=== PATIENT | female | born 1950 | race Caucasian/White ===

== ENCOUNTER → 2018-06-24 | Outpatient (CLI) | payer MEDICARE, OTHER, SELFPAY ==
--- NOTE | 2018-06-24 15:22 | RAD_ITS ---
STUDY: X-RAY CHEST REASON FOR EXAM: Female, 67 years old. Preop knee arthroplasty. TECHNIQUE: Frontal and lateral views of the chest. COMPARISON: None. FINDINGS: There is hyperinflation of the lungs consistent with chronic obstructive lung disease (COPD). No infiltrates. No effusions. There is no demonstrated pleural abnormality. Normal size heart. Normal mediastinum and gaurang. Normal visualized pulmonary arteries. Normal visualized aortic arch and descending thoracic aorta. There are diffuse degenerative changes of the visualized thoracic spine. Normal visualized ribs, clavicles, and shoulders. There is no demonstrated abnormality of the visualized soft tissue structures of the upper abdomen. RAD/Chest PA and Lateral IMPRESSION: There are findings consistent with COPD. There is no evidence of acute chest disease. Electronically Signed: Arthur Cottrell MD at 21:29 EDT , Service support ,
--- NOTE | 2018-06-24 15:26 | EKG12_ITS ---
Test Reason : PRE OP Blood Pressure : / mmHG Vent. Rate : 073 BPM Atrial Rate : 073 BPM P-R Int : 130 ms QRS Dur : 084 ms QT Int : 392 ms P-R-T Axes : 061 -51 041 degrees QTc Int : 431 ms Normal sinus rhythm Left axis deviation Abnormal ECG Confirmed by AMADEO FONTANEZ, TOM ([id number]), editorial manager SALLY CRUZ ([id number] on 06/25/2018 7:04:49 AM Referred By: Star Cruz Confirmed By:TOM CHILDS MD
== END | disposition home or self-care (01) ==
LOC: RAD 15:20
PROVIDERS: Referring Provider Orthopaedic Surgery; Visit Provider Orthopaedic Surgery
DX: F17.200 Nicotine dependence, unspecified, uncomplicated (principal); Z79.899 Other long term (current) drug therapy
CPT/HCPCS: 71046; 93005

== ENCOUNTER 2022-02-20 11:44 | Emergency (ER) | payer MEDICARE, OTHER, SELFPAY ==
[2022-02-20 11:45] VITALS: BP 109/93; PULSE 47; RESP 18; TEMP 36.3; O2SAT 95; BMI 25.0
[2022-02-20 11:47] VITALS: BP 155/76; PULSE 98; RESP 18; TEMP 36.8; O2SAT 98
[2022-02-20 12:47] VITALS: BP 137/80; PULSE 96; RESP 16; TEMP 37; O2SAT 99
[2022-02-20 13:00] VITALS: BP 132/74; PULSE 94; RESP 18; TEMP 36.9; O2SAT 98
[2022-02-20 13:44] VITALS: BP 115/72; PULSE 82; RESP 18; O2SAT 97
--- NOTE | 2022-02-20 13:44 | EX.ED.VIS.UR ---
HPI HPI - URI History of Present Illness Chief Complaint: Edema Informant: patient Onset/Context/Timing Onset: Weeks (2-3) Context: Gradual Onset Timing: Continuous Quality: Sinus pressure/pain along with some headaches off and on Location: Face Current Severity: Mild Maximum Severity: Moderate Worsened by: - (Nothing in particular) Relieved by: - (Nothing despite taking a second course of antibiotics) Narrative Narrative: Was seen in the office when she started having cough some mild shortness of breath with exertion, sinus pain, pressure, congestion about 3 weeks ago. She was placed on Augmentin after being diagnosed clinically with some pneumonia in the office according to the patient. This took care of her mild dyspnea and cough, and that has not recurred. She still has the sinus pressure and congestion. Her doctor put her on Levaquin 500 mg for 10 days, she has had 2 doses of that without any changes and she presents because her eyelids have been swollen since before starting the antibiotic, it is still like that, and she is still having a sinus discomfort in addition to popping in her ears when she holds her nose gently and blows. She denies any earache. No fevers or chills. No purulent nasal discharge. ROS ROS ED Constitutional Constitutional ED: Denies chills or fever(s) Eyes Eyes: Denies blurry vision, change in vision or diplopia ENT ENT ED: Reports as per HPI, headache(s), nasal congestion, rhinorrhea, sinus pain, sinus pressure and other Details: Ear popping bilaterally without pain or discharge. Bilateral lower eyelid and upper eyelid swelling without pain or changes in vision. ; Denies disequillibrium, dizziness, loss taste/smell, sore throat, throat swelling or tongue swelling Cardiovascular Cardiovascular: Denies chest pain or palpitations Respiratory/Chest Respiratory/Chest: Denies cough or dyspnea Gastrointestinal Gastrointestinal: Denies abdominal pain, diarrhea, nausea or vomiting Genitourinary Genitourinary ED: Denies dysuria or hematuria Musculoskeletal Musculoskeletal: Denies myalgias or neck pain Integumentary Denies abscess or rash Neurologic Neurologic: Reports headache(s); Denies paresthesias or weakness Psychiatric Psychiatric: Denies depression or suicidal thoughts Endocrine Endocrinology: Denies polydipsia or polyuria PFSH PFSH Medical History Smoker Allergy/AdvReac Type Severity Reaction Status Date / Time bee venom protein (honey bee) Allergy Anaphylaxis Verified 02/20/22 11:47 [bees] povidone-iodine Allergy Rash Verified 02/20/22 11:47 [From Betadine] Surgical History (Updated 02/20/22 @ 12:21 by Chani Hopper) Hx of tonsillectomy Social History Smoking Status: Current every day smoker tobacco type: cigarettes EXAM Physical Exam Const Vital Signs: 02/20/22 11:45 02/20/22 11:47 02/20/22 12:23 Temperature 97.3 F L 98.2 F Temperature Source Temporal Temporal Pulse Rate 47 L 98 Respiratory Rate 18 18 Respiratory Effort Short of Breath Respiratory Pattern Normal Blood Pressure 109/93 H 155/76 H Blood Pressure Mean 98 102 Pulse Ox 95 98 Oxygen Delivery Method Room Air Room Air 02/20/22 12:47 02/20/22 13:00 02/20/22 13:44 Temperature 98.6 F 98.4 F Temperature Source Temporal Temporal Pulse Rate 96 94 82 Respiratory Rate 16 18 18 Respiratory Effort Respiratory Pattern Blood Pressure 137/80 H 132/74 H 115/72 Blood Pressure Mean 99 93 86 Pulse Ox 99 98 97 Oxygen Delivery Method Room Air Room Air Room Air Positive well nourished and well developed General Appearance ED: well developed and NAD HEENT Reports moist mucous membranes HEENT Narrative: Nontender edematous bilateral infraorbital soft tissue without eyelid proper involvement. Normal conjunctivae. No ptosis. No signs of periorbital cellulitis. Mild ethmoid sinus tenderness. No maxillary sinus tenderness. No nasal purulent discharge, mild turbinate edema bilaterally, airways patent. No frontal tenderness. normocephalic and atraumatic Throat: Negative for posterior oropharynx abnormal Eyes PERRL and EOMs intact bilaterally Neck no lymphadenopathy, supple and no meningeal signs Resp normal respiratory effort and clear to auscultation bilaterally Cardio no murmurs Rate: regular rate Rhythm: regular rhythm Neuro oriented x3, CN's II-XII intact bilaterally and no sensory deficits noted Sensorium / Orientation: alert Motor Exam: strength 5/5 throughout Skin Lesions: no lesions Rashes: no rashes MDM MDM MDM Narrative Medical decision making narrative: Reassured this patient her exam is very benign. She has mild sinus tenderness. There is no evidence of a bacterial infection here. I do not think she is failing antibiotics. I would suggest she probably has a viral etiology of her sinus disease, or it could also be allergic although it is less likely due to the season being winter, but she does have significant seasonal allergies and other seasons. Since she has swelling below her eyes, I do not think putting her on prednisone will necessarily be helpful right now it could make fluid retention be worse, she is not retaining fluid in her extremities at all, and I am not sure the etiology of the facial edema but I do not think it is dangerous or indicative of preseptal cellulitis or other orbital phenomena. I think it would be reasonable to treat her with a decongestant which she has not tried at all. I would recommend oxymetazoline we discussed tachyphylaxis and how to avoid that, and she asked if she could stop the antibiotic which she wants to do, which I think would be reasonable. Follow-up advised. Discharge Plan Triage Chief Complaint: Edema ED Provider: Maxwell Loera Dx/Rx/DC Orders Clinical Impression: Sinus congestion, Sinus headache, Eustachian tube dysfunction, Swelling of eyelid Instructions: Understanding Sinus Problems Primary Care Provider: Arash Lisa Referrals: Arash Lisa MD [Primary Care Provider] - 3-5 Days if not improving Activity Restrictions/Additional Instructions: Use oxymetazoline or phenylephrine containing nasal sprays, 2 sprays each nostril every 12 hours as needed no more than 3 days at a time for congestion. After 15 or 20 minutes of doing this, applying a small amount of pressure by holding her nose and blowing can sometimes also help to stent open your sinuses, try to hold that pressure gently for an entire breath. Disposition Disposition: Home, Self Care
== END 2022-02-20 14:17 | disposition home or self-care (01) ==
PROVIDERS: Emergency Provider Emergency Medicine; PCP Family Medicine; Visit Provider Emergency Medicine
DX: R09.81 Nasal congestion (principal); R51.9 Headache, unspecified; F17.210 Nicotine dependence, cigarettes, uncomplicated; R60.9 Edema, unspecified
CPT/HCPCS: 99282

== ENCOUNTER 2022-03-31 19:53 | Emergency (ER) | payer MEDICARE, SELFPAY ==
[2022-03-31 19:54] VITALS: BP 132/76; PULSE 101; RESP 20; TEMP 36.6; O2SAT 97; BMI 25.1
--- NOTE | 2022-03-31 20:20 | EKG12_ITS ---
Test Reason : CP Blood Pressure : / mmHG Vent. Rate : 096 BPM Atrial Rate : 096 BPM P-R Int : 138 ms QRS Dur : 076 ms QT Int : 324 ms P-R-T Axes : 054 -23 053 degrees QTc Int : 409 ms Sinus rhythm with Premature supraventricular complexes Otherwise normal ECG Confirmed by PASHA FONTANEZ, CH[place] ([id number]), script editor LALO POLO ([id number]) on 04/03/2022 10:09:54 AM Referred By: BB Confirmed By:CHINA PAK MD
--- NOTE | 2022-03-31 20:37 | RAD_ITS ---
INDICATION: chest pain. Additional history: Pt experiencing intermittent CP with frequent nosebleeds. Has tumor around the heart, had recent stents placed for SCV. Denies CP at this time, states she has anxiety EXAMINATION/TECHNIQUE: X-RAY - XR Chest 2 Views COMPARISON: 06/24/2018 FINDINGS: LIFE-SUPPORT AND LINES: 1. Endovascular stent noted projecting along the course of the SVC. 2. No pneumothorax. HEART AND VESSELS: The cardiac silhouette, pulmonary vasculature have normal appearance. No evidence of congestive failure. LUNGS AND PLEURAL SPACES: Prominence of the RIGHT hilum is noted, with thickening of the RIGHT paratracheal soft tissue planes. Sequelae of mediastinal adenopathy and soft tissue thickening. No reed pulmonary infiltrate or consolidation MEDIASTINUM AND HILAR REGIONS: No masses adenopathy noted. No areas of calcification. Visualized upper airway is normal in position. BONY ELEMENTS: No acute bony changes noted. RAD/Chest PA and Lateral IMPRESSION: 1. Endovascular stent projecting along the course of the SVC. No pneumothorax. 2. Soft tissue thickening in the RIGHT paratracheal region extending into the RIGHT hilum, associated adenopathy and chronic soft tissue thickening is suspected. Associated mass and adenopathy are considerations. 3. No pulmonary infiltrate noted. 4. No congestive failure. Electronically Signed: Chase Newton MD at 20:49 EST ,
[2022-03-31 20:46] LABS: Absolute Lymphocyte Count 0.92 X10^3/uL (0.83-4.51); Absolute Neutrophil Count 3.8 X10^3/uL (2.0-7.7); Basophil# 0.02 X10^3/uL; Basophil% 0.4 % (0-1); Eosinophil# 0.03 X10^3/uL; Eosinophils% 0.6 % (0-5); Hematocrit 37.7 % (37-47); Hemoglobin 12.3 g/dL (12.0-15.0); Lymphocyte # 0.92 X10^3/ul (0.83-4.51); Lymphocyte % 18.9 % (19-41); Mean Corp Hgb Conc 32.6 g/dL (32-36); Mean Corpuscular Hgb 30.2 pg (27.0-32.0); Mean Corpuscular Volume 92.6 fL (81-99); Mean Platelet Vol. 10.7 fl (6.2-12.0); Monocyte# 0.03 X10^3/uL; Monocyte% 0.6 % (0-10); NRBC Flagged by Analyzer 0 % (0-5); Neutrophil # 3.81 X10^3/uL (2.7-7.7); Neutrophil % 78.1 % (47-70); POSITIVE MORPHOLOGY YES; Platelet Count 258 K/mm3 (150-450); RBC Distribution Width CV 13.2 % (11.6-14.6); RBC Distribution Width SD 44.4 fl (35.1-43.9); Red Blood Count 4.07 M/mm3 (4.2-5.4); White Blood Count 4.9 K/mm3 (4.4-11.0)
[2022-03-31 20:47] LABS: Differential Indicated SCAN CRITERIA MET
--- NOTE | 2022-03-31 20:47 | ED.VIS.CHEST ---
HPI <MORENA Jackson - Last Filed: 03/31/22 23:01> History of Present Illness Chief Complaint: Chest Pain Narrative Narrative: Patient presents with sharp and intermittent midsternal chest pain that radiates to her back and to the left side of her chest that she has had since last night. She states the pain was so bad last night that she began to cry. Patient states that she does have acid reflux and is not sure if that is what is causing her chest pain but she also has anxiety and thinks she might be having panic attacks. She states she has tried taking Gas-X and [place] without relief of her symptoms. Patient was recently diagnosed with lung cancer and had 2 stents placed for SVC syndrome on Thursday as well as a bronchoscopy. Patient denies history of cardiac conditions, blood clots, shortness of breath, nausea, abdominal pain PFSH <MORENA Jackson - Last Filed: 03/31/22 23:01> PFSH Medical History Smoker Home Medications lorazepam 0.5 mg tablet (Ativan) 0.5 mg PO DAILY PRN anxiety #14 tabs 03/31/22 [Rx Last Taken Unknown] oxycodone-acetaminophen 5 mg-325 mg tablet (Percocet) 1 tab PO Q8H PRN pain 5 days #10 tabs 03/31/22 [Rx Last Taken Unknown] pantoprazole 20 mg tablet,delayed release (Protonix) 20 mg PO DAILY #30 tabs 03/31/22 [Rx Last Taken Unknown] Allergy/AdvReac Type Severity Reaction Status Date / Time bee venom protein (honey bee) Allergy Anaphylaxis Verified 02/20/22 11:47 [bees] povidone-iodine Allergy Rash Verified 02/20/22 11:47 [From Betadine] Surgical History Hx of tonsillectomy Social History Smoking Status: Former smoker ROS <MORENA Jackson - Last Filed: 03/31/22 23:01> ROS ED Constitutional Constitutional ED: Denies chills, fever(s) or sweats Eyes Eyes: Denies blurry vision or diplopia Cardiovascular Cardiovascular: Reports chest pain; Denies palpitations Respiratory/Chest Respiratory/Chest: Denies cough, dyspnea, tachypnea or wheezing Gastrointestinal Gastrointestinal: Denies abdominal pain, constipation, diarrhea, nausea or vomiting Genitourinary Genitourinary ED: Denies dysuria, hematuria or urinary urgency Musculoskeletal Musculoskeletal: Denies arthralgias, back pain, myalgias or neck pain Integumentary Denies abscess, Abrasions or rash Neurologic Neurologic: Denies confusion, dizziness or paresthesias Psychiatric Psychiatric: Reports anxiety; Denies depression, suicidal ideation or suicidal thoughts Allergic/Immunologic Allergic/Immunologic ED: Denies lip swelling, mouth swelling or urticaria EXAM <MORENA Jackson - Last Filed: 03/31/22 23:01> Physical Exam Const Vital Signs: 03/31/22 19:54 03/31/22 19:58 03/31/22 22:09 Temperature 97.9 F Temperature Source Temporal Pulse Rate 101 H 95 Respiratory Rate 20 H 15 Respiratory Effort Normal Blood Pressure 132/76 H 112/67 Blood Pressure Mean 94 82 Pulse Ox 97 95 Oxygen Delivery Method Room Air Room Air Positive well nourished, well developed and no apparent distress General Appearance ED: well developed HEENT Reports normocephalic and head/scalp atraumatic Mouth ED: Yes moist mucous membranes normal Eyes PERRL and EOMs intact bilaterally Neck full ROM and supple Chest Wall inspection of chest normal Resp normal respiratory effort and clear to auscultation bilaterally Cardio regular rate and regular rhythm GI soft to palpation, non-tender, non-distended and no masses Back/Spine normal ROM and normal to inspection Extremity normal to inspection and full ROM Neuro oriented x3, CN's II-XII intact bilaterally, moves all extremities, no focal motor deficits and no sensory deficits noted Sensorium / Orientation: awake and alert Psych mental status grossly normal and thought process normal Skin no rashes or lesions noted and no wounds <Dr. Maxwell Loera MD - Last Filed: 03/31/22 23:04> Physical Exam Const Vital Signs: 03/31/22 19:54 03/31/22 19:58 03/31/22 22:09 Temperature 97.9 F Temperature Source Temporal Pulse Rate 101 H 95 Respiratory Rate 20 H 15 Respiratory Effort Normal Blood Pressure 132/76 H 112/67 Blood Pressure Mean 94 82 Pulse Ox 97 95 Oxygen Delivery Method Room Air Room Air <MORENA Jackson - Last Filed: 03/31/22 23:01> Heart Score Score: 3 <Dr. Maxwell Loera MD - Last Filed: 03/31/22 23:04> Heart Score History: Slightly/Non-Suspicious ECG: Normal Age: >/= 65 years Risk Factors: 1 or 2 Risk Factors Troponin: </= Normal Limit Score: 3 MDM <MORENA Jackson - Last Filed: 03/31/22 23:01> MDM Lab Data Labs: Laboratory Results - last 24 hr 03/31/22 03/31/22 20:32 20:32 WBC 4.9 RBC 4.07 L Hgb 12.3 Hct 37.7 MCV 92.6 MCH 30.2 MCHC 32.6 RDW Std Deviation 44.4 H RDW Coeff of Chanda 13.2 Plt Count 258 MPV 10.7 Immature Gran % (Auto) 1.400 H Neut % (Auto) 78.1 H Lymph % (Auto) 18.9 L [place] % (Auto) 0.6 Eos % (Auto) 0.6 Baso % (Auto) 0.4 Absolute Neuts (auto) 3.8 Absolute Lymphs (auto) 0.92 Nucleated RBC % 0 Differential Comment SCANNED Sodium 135 L Potassium 4.3 Chloride 99 Carbon Dioxide 28.0 Anion Gap 8 BUN 31 H Creatinine 0.66 Estim Creat Clear Calc 39.63 Est GFR (MDRD) Af Amer 112 Est GFR (MDRD) Non-Af 93 BUN/Creatinine Ratio 46.8 H Glucose 118 H Calcium 9.8 Troponin I High Sens 12 Radiography Diagnostic Testing: Clinical Impression(s) from Imaging Studies Chest X-Ray 03/31/22 20:37 IMPRESSION: 1. Endovascular stent projecting along the course of the SVC. No pneumothorax. 2. Soft tissue thickening in the RIGHT paratracheal region extending into the RIGHT hilum, associated adenopathy and chronic soft tissue thickening is suspected. Associated mass and adenopathy are considerations. 3. No pulmonary infiltrate noted. 4. No congestive failure. Electronically Signed: Chase Newton MD at 20:49 EST , Chest CTA 03/31/22 20:52 IMPRESSION: undefined <Dr. Maxwell Loera MD - Last Filed: 03/31/22 23:04> ROSA M MEDEROS Narrative Medical decision making narrative: Seen and evaluated independently and in conjunction with physician rehabilitation assistant. Agree with notes above unless documented otherwise. This patient is complaining of atypical symptoms with regards to cardiac, left-sided, sharp, she states there is a pleuritic component, and the symptoms are coming and going. 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 She is thinking maybe this is anxiety. However seems like she is having real pain. We evaluated her Wells criteria, as below, and based on those results, we went straight to CT angiography of the chest after obtaining a stat portable chest x-ray which on my interpretation rules out pneumothorax. The CT interpretation is reviewed and are the images, her right pulmonary artery appears to go through the mass and mediastinal lymphadenopathy, but she does not have any filling defects or signs of a pulmonary embolus. It was also noted that she is a small pericardial effusion. Clinically she has no signs of tamponade, and her EKG shows no signs of pericarditis. It is possible that her small pericardial effusion is contributing to her pain. I do not think she needs to be admitted for that at this time. My interpretation of the CT agrees with that of the radiologist. Given all of this, the patient was feeling well transiently and then started having pain again. Her IV blew after the CT, and she did not want it placed back again which I think is fine. We gave her intramuscular doses of morphine and Ativan after I discussed this option with her and she was okay with it, as well as prophylactic oral Zofran. On reevaluation she does feel little bit better and then starts noting that she feels like maybe she is having some reflux symptoms, she burps that her chest discomfort does improve, esophageal etiologies therefore in the differential as well. She is comfortable going home with prescriptions for a PPI which we will give her here in addition to some Mylanta, as well as [place] and some Ativan and she will follow-up. Wells' Criteria for Pulmonary Embolism from [email or web address] on 03/31/2022 All calculations should be rechecked by clinician prior to use RESULT SUMMARY: 2.5 points Moderate risk group: 16.2% chance of PE in an ED population. Another study assigned scores <=4 as ?PE Unlikely? and had a 3% incidence of PE. INPUTS: Clinical signs and symptoms of DVT ?> 0 = No PE is #1 diagnosis OR equally likely ?> 0 = No Heart rate > 100 ?> 1.5 = Yes Immobilization at least 3 days OR surgery in the previous 4 weeks ?> 0 = No Previous, objectively diagnosed PE or DVT ?> 0 = No Hemoptysis ?> 0 = No Malignancy w/ treatment within 6 months or palliative ?> 1 = Yes Lab Data Attestation: I reviewed the patient's lab results. Labs: Laboratory Results - last 24 hr 03/31/22 03/31/22 20:32 20:32 WBC 4.9 RBC 4.07 L Hgb 12.3 Hct 37.7 MCV 92.6 MCH 30.2 MCHC 32.6 RDW Std Deviation 44.4 H RDW Coeff of Chanda 13.2 Plt Count 258 MPV 10.7 Immature Gran % (Auto) 1.400 H Neut % (Auto) 78.1 H Lymph % (Auto) 18.9 L [place] % (Auto) 0.6 Eos % (Auto) 0.6 Baso % (Auto) 0.4 Absolute Neuts (auto) 3.8 Absolute Lymphs (auto) 0.92 Nucleated RBC % 0 Differential Comment SCANNED Sodium 135 L Potassium 4.3 Chloride 99 Carbon Dioxide 28.0 Anion Gap 8 BUN 31 H Creatinine 0.66 Estim Creat Clear Calc 39.63 Est GFR (MDRD) Af Amer 112 Est GFR (MDRD) Non-Af 93 BUN/Creatinine Ratio 46.8 H Glucose 118 H Calcium 9.8 Troponin I High Sens 12 Radiography Diagnostic Testing: Clinical Impression(s) from Imaging Studies Chest X-Ray 03/31/22 20:37 IMPRESSION: 1. Endovascular stent projecting along the course of the SVC. No pneumothorax. 2. Soft tissue thickening in the RIGHT paratracheal region extending into the RIGHT hilum, associated adenopathy and chronic soft tissue thickening is suspected. Associated mass and adenopathy are considerations. 3. No pulmonary infiltrate noted. 4. No congestive failure. Electronically Signed: Chase Newton MD at 20:49 EST , Chest CTA 03/31/22 20:52 IMPRESSION: undefined Rhythm Strip Rhythm Strip: Sinus Rhythm Rate: 95 Ectopy: PAC(s) EKG Initial EKG: Attestation: I personally reviewed and interpreted this EKG as follows: Interpretation: Sinus Rhythm, No Acute Injury Pattern and LAFB Prior EKG tracings: available for review Prior: Unchanged Discharge Plan Triage Chief Complaint: Chest Pain ED Midlevel Provider: Liliana Edwards ED Provider: Maxwell Loera Dx/Rx/DC Orders Clinical Impression: Intermittent left-sided chest pain, Anxiety, Lung cancer Instructions: ED Chest Pain, Uncertain Cause Prescriptions: New lorazepam [Ativan] 0.5 mg tablet 0.5 mg PO DAILY PRN (Reason: anxiety) Qty: 14 0RF pantoprazole [Protonix] 20 mg tablet,delayed release (DR/EC) 20 mg PO DAILY Qty: 30 0RF oxycodone-acetaminophen [Percocet] 5-325 mg tablet 1 tab PO Q8H PRN (Reason: pain) 5 Days Qty: 10 0RF Primary Care Provider: Arash Lisa Referrals: Arash Lisa MD [Primary Care Provider] - 3-5 Days if not improving (or your oncologist) Activity Restrictions/Additional Instructions: Please call up with PCP and please return if symptoms do not improve or worsen. Disposition Disposition: Home, Self Care
--- NOTE | 2022-03-31 20:52 | CT_ITS ---
STUDY: CTA CHEST REASON FOR EXAM: Female, 71 years old. chest pain, tachycardia, tachypnea RADIATION DOSAGE (If Supplied By Facility): CTDIvol = ( 9.13 ) mGy, DLP = ( 176.70 ) mGycm TECHNIQUE: The examination was performed with the intravenous administration of IV 75mL Isovue-[id number]. Post-processing of the angiographic images was performed, with multiplanar reformation and 3D reconstruction. Individualized dose optimization techniques were used for this CT. COMPARISON: Correlation is made to plain film of the chest of the same date. FINDINGS: Limitation: Mild limitation of current examination due to timing bolus with significant dilution of contrast within the pulmonary arterial tree. Tubes and lines: 1. Endovascular stent present within the SVC. Significant streak artifact does limit evaluation of the lumen of the endovascular stent. 2. No pneumothorax noted. 3. Extensive mass and adenopathy involving the RIGHT paratracheal region and RIGHT hilum.. CTA: PULMONARY ARTERIES: Significant dilution of contrast within the pulmonary arterial tree due to timing bolus. No proximal filling defects noted. There is significant encasement of the RIGHT pulmonary artery RIGHT upper lobe pulmonary artery and RIGHT middle lobe pulmonary arteries due to a large mediastinal and RIGHT hilar mass. No intraluminal filling defects however noted. AORTIC ARCH: The aortic arch and descending aorta have normal configuration. No evidence of dissection or aneurysmal dilatation. Diffuse aortic calcifications are present. HEART: Cardiac contour is normal. Moderate coronary vascular calcifications present. There is a small pericardial effusion. CT CHEST: LUNGS: [Patchy areas of interstitial prominence noted in the RIGHT perihilar and suprahilar regions. There is mild pleural thickening involving the RIGHT upper lobe at the RIGHT apex, and along the medial aspect of the RIGHT upper lobe.. Remaining lung zones are clear.. PLEURAL SPACES: Unremarkable, no effusion or pneumothorax.. MEDIASTINUM AND LYMPH NODES: Extensive confluent mass and adenopathy involving the superior mediastinum extending into the RIGHT paratracheal region I, encasing the SVC, encasing the RIGHT pulmonary artery and RIGHT upper lobe and RIGHT middle lobe arteries. There is partial encasement of the RIGHT upper lobe RIGHT middle lobe bronchi I, and bronchus intermedius.. BONES: Unremarkable ABDOMEN: Within normal limits. Other: None IMPRESSIONS: 1. Endovascular stent noted within the SVC, streak artifact obscures detail of the lumen of the stent however there are findings suspicious filling defect along posterior aspect of the stent. No evidence however of reed occlusion. 2. Technical limitations are current examination with dilution of contrast within the pulmonary arterial tree due to timing bolus. 3. Significant mass effect and encasement of the RIGHT upper lobe RIGHT middle lobe and a RIGHT main pulmonary artery due to confluent mediastinal and hilar mass however no intraluminal filling defects or PE noted bilaterally. 4. No CTA evidence of aortic aneurysm or dissection 5. Cardiac contour is normal. Pericardial effusion is noted. Moderate coronary vascular calcifications. 6. Extensive mediastinal and RIGHT hilar mass and adenopathy. Mild interstitial prominence and adjacent pleural thickening involving the RIGHT upper lobe however remaining lung zones are clear. Electronically Signed: Chase Newton MD at 21:43 EST , CT/CTA Chest W/WO Contrast IMPRESSION: undefined
[2022-03-31 21:04] LABS: Anion Gap 8 (5-15); BUN 31 mg/dL (7-18); BUN/Creat Ratio 46.8 RATIO (10-20); Calcium,Total 9.8 mg/dL (8.5-10.1); Chloride 99 mmol/L (98-107); Creatinine, Serum 0.66 mg/dL (0.55-1.02); EST Glomerular Filtration Rate 93 mL/min (>60); Est Glom Filt Rate - Afr Amer 112 mL/min (>60); Estimated Creatinine Clearance 39.63 ml/min; Glucose 118 mg/dL (74-106); Potassium 4.3 mmol/L (3.5-5.1); Sodium Level 135 mmol/L (136-145); Troponin-I HS (w/2H Reflex) 12 pg/mL (3.0-54.0)
[2022-03-31 21:08] LABS: Differential Comment SCANNED
[2022-03-31] MEDS: LORazepam 2 MG/ML Syringe 0.5 MG IM (22:03)
[2022-03-31] MEDS: Morphine 4 MG/ML Syringe IM (22:04)
[2022-03-31] MEDS: Ondansetron ODT 4 MG Tablet 8 MG PO (22:04)
[2022-03-31 22:09] VITALS: BP 112/67; PULSE 95; RESP 15; O2SAT 95
[2022-03-31] MEDS: Mag Hydrox/Al Hydrox/Simeth 30 ML UDC 15 ML PO (23:09)
[2022-03-31 23:11] VITALS: BP 103/68; PULSE 95; RESP 20; O2SAT 95
[2022-03-31] MEDS: Pantoprazole Sodium 40 MG Tablet PO (23:19)
== END 2022-03-31 23:21 | disposition home or self-care (01) ==
PROVIDERS: Physician Assistant; Emergency Provider Emergency Medicine; PCP Family Medicine; Visit Provider Emergency Medicine
DX: R07.89 Other chest pain (principal); C34.90 Malignant neoplasm of unspecified part of unspecified bronchus or lung; R59.1 Generalized enlarged lymph nodes; F41.9 Anxiety disorder, unspecified; K21.9 Gastro-esophageal reflux disease without esophagitis; Z79.899 Other long term (current) drug therapy; Z87.891 Personal history of nicotine dependence
CPT/HCPCS: 71046; 71275; 80048; 84484; 85025; 93005; 96372; 99285; Q9967; A4216

== ENCOUNTER → 2022-04-14 | Outpatient (CLI) | payer MEDICARE, SELFPAY ==
[2022-04-14 08:57] VITALS: BP 120/77; PULSE 88; RESP 18; TEMP 36.3; O2SAT 99; BMI 23.0
== END | disposition home or self-care (01) ==
LOC: RAD 08:43
PROVIDERS: PCP Family Medicine; Referring Provider Internal Medicine Hematology & Oncology; Visit Provider Internal Medicine Hematology & Oncology
DX: C34.90 Malignant neoplasm of unspecified part of unspecified bronchus or lung (principal)
CPT/HCPCS: 36569

== ENCOUNTER 2022-05-21 12:16 | Emergency (ER) | payer MEDICARE, SELFPAY ==
[2022-05-21] VITALS (22 sets, daily range): BP systolic 116–151; BP diastolic 64–87; PULSE 100–118; RESP 16–22; TEMP 35.9–36.9; O2SAT 92–100; BMI 24.0
[2022-05-21 14:03] LABS: Absolute Lymphocyte Count 0.36 X10^3/uL (0.83-4.51); Absolute Neutrophil Count 2.1 X10^3/uL (2.0-7.7); Basophil# 0.02 X10^3/uL; Basophil% 0.7 % (0-1); Hematocrit 19.5 % (37-47); Hemoglobin 6.4 g/dL (12.0-15.0); Lymphocyte # 0.36 X10^3/ul (0.83-4.51); Lymphocyte % 13.1 % (19-41); Mean Corp Hgb Conc 32.8 g/dL (32-36); Mean Corpuscular Hgb 31.5 pg (27.0-32.0); Mean Corpuscular Volume 96.1 fL (81-99); Mean Platelet Vol. 11.9 fl (6.2-12.0); Monocyte# 0.24 X10^3/uL; Monocyte% 8.8 % (0-10); NRBC Flagged by Analyzer 0 % (0-5); Neutrophil # 2.09 X10^3/uL (2.7-7.7); Neutrophil % 76.3 % (47-70); POSITIVE COUNT YES; POSITIVE DIFFERENTIAL YES; POSITIVE MORPHOLOGY YES; RBC Distribution Width CV 16.8 % (11.6-14.6); RBC Distribution Width SD 57.8 fl (35.1-43.9); Red Blood Count 2.03 M/mm3 (4.2-5.4); White Blood Count 2.7 K/mm3 (4.4-11.0)
[2022-05-21 14:15] LABS: Differential Indicated SCAN CRITERIA MET; Platelet Count 16 K/mm3 (150-450)
[2022-05-21 14:17] LABS: ALB/GLOB Ratio 1.1 RATIO (0.9-2.4); AST(SGOT) 12 U/L (15-37); Alanine Aminotransfer ALT/SGPT 16 U/L (13-56); Albumin, Serum 3.2 g/dL (3.2-5.0); Alkaline Phosphatase 122 U/L (45-117); Anion Gap 3 (5-15); BUN 17 mg/dL (7-18); BUN/Creat Ratio 29.6 RATIO (10-20); Calcium,Total 9.7 mg/dL (8.5-10.1); Chloride 109 mmol/L (98-107); Creatinine, Serum 0.58 mg/dL (0.55-1.02); EST Glomerular Filtration Rate 109 mL/min (>60); Est Glom Filt Rate - Afr Amer 132 mL/min (>60); Estimated Creatinine Clearance 39.63 ml/min; Glucose 87 mg/dL (74-106); Potassium 3.9 mmol/L (3.5-5.1); Protein, Total 6.2 g/dL (6.4-8.2); Sodium Level 139 mmol/L (136-145)
[2022-05-21 14:56] LABS: Platelet Estimate MKD DEC (ADEQ)
--- NOTE | 2022-05-21 15:56 | ED.RN ---
Pt stating she is slightly dizzy and getting blurred vision. blood stopped and dr. christiansen to bedside. VO to continue with blood transfusion and monitor for any new sym.
--- NOTE | 2022-05-21 16:48 | EX.ED.DYSGE1 ---
HPI History of Present Illness Chief Complaint: Abn Labs Narrative Narrative: 71-year-old female presenting with anemia. She is a patient of Dr. Quezada. She is on Plavix and aspirin. She also does chemotherapy with last chemotherapy 2 weeks ago. She has a history of small cell lung cancer. Currently on cisplatin etoposide. Patient states that she has very bad nosebleeds. These happen often. Symptoms lasting all day. She states she was referred to ENT does not appointment till next week. Blood work was checked recently to show a hemoglobin of 7.1. She was referred to the ER for blood transfusion and platelets. Other than feeling a little bit sleepy she does not have any complaints of shortness of breath, chest pain, dizziness, lightheadedness. She denies any black or bloody stools. She denies any epigastric pain. PFSH PFS Medical History Smoker Home Medications aspirin 81 mg tablet,delayed release 81 mg PO DAILY 04/14/22 [History Last Taken 05/20/22] clopidogrel 75 mg tablet (Plavix) 75 mg PO DAILY 04/14/22 [History Last Taken 05/20/22] Allergy/AdvReac Type Severity Reaction Status Date / Time bee venom protein (honey bee) Allergy Anaphylaxis Verified 05/21/22 12:17 [bees] povidone-iodine Allergy Rash Verified 05/21/22 12:17 [From Betadine] Surgical History Hx of tonsillectomy Social History Smoking Status: Former smoker ROS ROS ED Constitutional Constitutional ED: Denies chills, fever(s) or sweats Eyes Eyes: Denies blurry vision or change in vision ENT ENT ED: Reports other Details: Recurrent epistaxis ; Denies ear pain or sore throat Cardiovascular Cardiovascular: Denies chest pain, palpitations or racing heartbeat Respiratory/Chest Respiratory/Chest: Denies cough, dyspnea or sputum Gastrointestinal Gastrointestinal: Denies abdominal pain, constipation, diarrhea, nausea or vomiting Genitourinary Genitourinary ED: Denies dysuria, hematuria or urinary frequency Musculoskeletal Musculoskeletal: Denies arthralgias, myalgias or neck pain Integumentary Denies abscess, Abrasions or rash Neurologic Neurologic: Denies headache(s), paresthesias or weakness Psychiatric Psychiatric: Denies anxiety, depression, suicidal ideation or suicidal thoughts Endocrine Endocrinology: Denies polydipsia or polyuria EXAM Physical Exam Const Vital Signs: 05/21/22 12:18 05/21/22 13:11 05/21/22 14:38 Temperature 96.7 F L Temperature Source Temporal Pulse Rate 118 H Respiratory Rate 16 16 Respiratory Pattern Normal Blood Pressure 130/70 H Blood Pressure Mean 90 Blood Pressure Source Blood Pressure Position Blood Pressure Location Pulse Ox 100 Oxygen Delivery Method Room Air 05/21/22 15:00 05/21/22 15:36 05/21/22 15:42 Temperature 98.3 F 98.2 F Temperature Source Oral Oral Pulse Rate 108 H 107 H 104 H Respiratory Rate 16 18 16 Respiratory Pattern Blood Pressure 144/87 H 147/74 H 144/85 H Blood Pressure Mean 106 98 104 Blood Pressure Source Monitor Monitor Blood Pressure Position Semi-Fowlers Semi-Fowlers Blood Pressure Location Left Arm Left Arm Pulse Ox 92 97 98 Oxygen Delivery Method Room Air Room Air Room Air 05/21/22 15:57 05/21/22 16:00 Temperature 98.3 F Temperature Source Oral Pulse Rate 104 H 104 H Respiratory Rate 18 16 Respiratory Pattern Blood Pressure 128/65 H 128/65 H Blood Pressure Mean 86 86 Blood Pressure Source Monitor Blood Pressure Position Semi-Fowlers Blood Pressure Location Left Arm Pulse Ox 99 99 Oxygen Delivery Method Room Air Room Air Positive well nourished HEENT Reports moist mucous membranes trauma Eyes PERRL and EOMs intact bilaterally Chest Wall inspection of chest normal Resp normal respiratory effort and clear to auscultation bilaterally Cardio regular rate and regular rhythm Neuro oriented x3 and CN's II-XII intact bilaterally Sensorium / Orientation: alert Psych mental status grossly normal Skin no rashes or lesions noted MDM MDM MDM Narrative Medical decision making narrative: Patient with history of nosebleeds and anemia. I discussed her with Dr. Quezada and he states that she does have very bad nosebleeds and she wants and he wants her transfused 2 units of PRBCs plus he wants 2 units of platelets given. He states that although she has a reason to be anemic from the nosebleeds she would also be anemic partially because of the chemotherapy. This was discussed with the patient and she is amenable to this. Patient had already been typed and screened earlier today. Her hemoglobin is 6.14 today. She was typed and screened and crossmatched for 2 units. She was also ordered 2 units of platelets. Renal function and electrolytes are normal. Patient will be monitored until she receives all of her blood. She will be signed out to incoming ED physician for monitoring. Patient will be discharged following this. Impression: 1. Anemia 2. History of epistaxis 3. History of small cell lung cancer Lab Data Labs: Laboratory Results - last 24 hr 05/21/22 05/21/22 05/21/22 10:15 13:50 13:50 WBC 2.7 L RBC 2.03 L Hgb 6.4 L Hct 19.5 L MCV 96.1 MCH 31.5 MCHC 32.8 RDW Std Deviation 57.8 H RDW Coeff of Chanda 16.8 H Plt Count 16 L* MPV 11.9 Immature Gran % (Auto) 1.100 H Neut % (Auto) 76.3 H Lymph % (Auto) 13.1 L Band[place] % (Auto) 8.8 Eos % (Auto) 0.0 Baso % (Auto) 0.7 Absolute Neuts (auto) 2.1 Absolute Lymphs (auto) 0.36 L Nucleated RBC % 0 Differential Comment COMMENT Diff Path Review May foll Platelet Estimate MKD DEC Sodium 139 Potassium 3.9 Chloride 109 H Carbon Dioxide 27.0 Anion Gap 3 L BUN 17 Creatinine 0.58 Estim Creat Clear Calc 39.63 Est GFR (MDRD) Af Amer 132 Est GFR (MDRD) Non-Af 109 BUN/Creatinine Ratio 29.6 H Glucose 87 Calcium 9.7 Total Bilirubin 0.50 AST 12 L ALT 16 Alkaline Phosphatase 122 H Total Protein 6.2 L Albumin 3.2 Globulin 3.0 Albumin/Globulin Ratio 1.1 Blood Type O POSITIVE Antibody Screen NEGATIVE Crossmatch See Detail Discharge Plan Triage Chief Complaint: Abn Labs ED Provider: Subhash Parnell Dx/Rx/DC Orders Prescriptions: No Action clopidogrel [Plavix] 75 mg Tablet 75 mg PO DAILY Rx Instructions: PT UNSURE OF PLAVIX DOSE aspirin [Aspir-81] 81 mg Tablet,Delayed Release (Dr/Ec) 81 mg PO DAILY Primary Care Provider: Arash Lisa Referrals: Arash Lisa MD [Primary Care Provider] -
[2022-05-22 13:23] LABS: Pathologist Review Reviewed
== END 2022-05-21 22:08 | disposition home or self-care (01) ==
PROVIDERS: Emergency Provider Student in an Organized Health Care Education/Training Program; PCP Family Medicine; Visit Provider Student in an Organized Health Care Education/Training Program
DX: D64.9 Anemia, unspecified (principal); Z87.891 Personal history of nicotine dependence; Z85.118 Personal history of other malignant neoplasm of bronchus and lung; R04.0 Epistaxis; Z79.02 Long term (current) use of antithrombotics/antiplatelets; Z79.82 Long term (current) use of aspirin; Z92.21 Personal history of antineoplastic chemotherapy
CPT/HCPCS: 36592; 80053; 85025; 86850; 86900; 86901; 86920; 86922; 86965; 99282; J7040; P9016; P9035; A4216

== ENCOUNTER 2022-06-10 19:27 | Inpatient (IN) | payer MEDICARE, SELFPAY ==
[2022-06-10] VITALS (10 sets, daily range): BP systolic 90–112; BP diastolic 53–90; PULSE 96–132; RESP 16–26; TEMP 36.9–37.8; O2SAT 93–100; BMI 21.7; BMI 22.8
--- NOTE | 2022-06-10 19:48 | RAD_ITS ---
INDICATION: cough EXAMINATION/TECHNIQUE: X-RAY - XR Chest 1 View COMPARISON: None. FINDINGS: LINES/DEVICES: There is a right PICC line with tip at the distal SVC. Stent in the SVC.. LUNGS: There is a focal right basilar infiltrate. No pneumothorax. MEDIASTINUM AND CARDIOVASCULAR STRUCTURES: Cardiac silhouette not enlarged. Central airways and mediastinal contour are unremarkable. BONES AND SOFT TISSUES: Unremarkable. RAD/Chest 1 View (Portable) IMPRESSION: Focal right basilar infiltrate. Electronically Signed: Srego Casas DO at 20:13 EDT ,
--- NOTE | 2022-06-10 19:55 | EX.ED.DYSGE1 ---
HPI <AB Green - Last Filed: 06/10/22 21:07> History of Present Illness Chief Complaint: Fever Narrative Narrative: Patient is a 71-year-old female with history of small cell carcinoma, who is currently under chemotherapy and radiation. Last dose of chemotherapy and radiation was 2 weeks ago. Patient also has a heart history. Over the last 3 to 4 days, the patient is feeling more fatigued. The patient is having diarrhea and is having worsening weakness. Patient has had fevers of 100.4 at home. The patient called her oncologist who told to come to the emergency department. Patient denies any blood in stool or vomit. Patient is scheduled for a CT scan of the chest tomorrow. Patient does have history of diverticulitis however states he does not feel like that. Patient's abdomen is unremarkable this time. PFSH <AB Green - Last Filed: 06/10/22 21:07> [facility] Medical History (Updated 06/10/22 @ 21:[address] Amauri Snyder MD) Small cell lung cancer in adult Smoker SVC (superior vena cava obstruction) Home Medications aspirin 81 mg tablet,delayed release 81 mg PO DAILY 04/14/22 [History Last Taken 05/20/22] clopidogrel 75 mg tablet (Plavix) 75 mg PO DAILY 04/14/22 [History Last Taken 05/20/22] Allergy/AdvReac Type Severity Reaction Status Date / Time bee venom protein (honey bee) Allergy Anaphylaxis Verified 06/10/22 19:27 [bees] povidone-iodine Allergy Rash Verified 06/10/22 19:27 [From Betadine] Surgical History Hx of tonsillectomy Social History Smoking Status: Former smoker ROS <AB Green - Last Filed: 06/10/22 21:07> ROS ED ROS Narrative Constitutional: Negative for weight loss, weakness. Positive for fever, chills, weakness Eyes: Negative for vision loss, vision change, double vision ENT: Negative for any sore throat, ear pain, congestion Cardiovascular: Negative for any chest pain, tightness, palpitations Respiratory: Negative for any cough, sputum production, hemoptysis, dyspnea, dyspnea on exertion, orthopnea Gastrointestinal: Negative for any vomiting, constipation, blood in stool, blood in vomit. Positive for intermittent abdominal pain, nausea, diarrhea : Negative for any urinary frequency, dysuria, retention, blood in urine Muscle skeletal: Negative for any muscle joint pain, stiffness, myalgias, arthralgias, neck pain, back pain Neurological: Negative for any headache, syncope, numbness or tingling, dizziness Skin: Negative for any rashes, lumps, itching, abrasions, lacerations Psychiatric: Negative for any depression, anxiety, stress, suicidal ideation, homicidal ideation Hematologic: Negative for any easy bruising, excessive bruising, easy bleeding Allergies: Negative for any eczema, hives, rash EXAM <AB Green - Last Filed: 06/10/22 21:07> Physical Exam Narrative Exam Narrative: Vital signs reviewed. Patient appears generally well. Patient has a 100 temperature temporal, 98.8 orally. HEET: Head normocephalic atraumatic, TMs clear bilaterally. Posterior pharynx is clear, dry mucous membranes. Nares clear bilaterally. Neck: Supple with no lymphadenopathy or tenderness. No signs of meningismus, negative jolt sign. Cardiac: Tachycardic rate no murmurs gallops or rubs, equal peripheral pulses bilaterally. Respiratory: Lungs clear to auscultation bilaterally. No chest tenderness. Abdomen: Soft, nontender, nondistended. No abdominal bruit or pulsatile masses. No hepatosplenomegaly Extremities: No peripheral edema, no signs of gross trauma or deformity. Active full range of motion of all extremities. Neuro: Cranial nerves II through XII intact, no focal neurological deficits. Skin: Clean dry and intact with no rash, purpura, petechiae, vesicles or pustules. Backs/flank: No CVA tenderness, no midline spinal tenderness, no deformity. Psych: Normal mood and affect. No SI, HI or acute psychosis. Const Vital Signs: 06/10/22 19:28 06/10/22 20:08 06/10/22 20:10 Temperature 100.0 F H Temperature Source Temporal Pulse Rate 132 H Respiratory Rate 20 H Respiratory Effort Normal Non-Labored Blood Pressure 93/58 L Blood Pressure Mean 69 Pulse Ox 100 Oxygen Delivery Method Room Air Room Air 06/10/22 20:32 Temperature 98.8 F Temperature Source Oral Pulse Rate 109 H Respiratory Rate 24 H Respiratory Effort Blood Pressure 94/67 Blood Pressure Mean 76 Pulse Ox Oxygen Delivery Method Room Air Positive cachectic General Appearance ED: cachectic Nutritional Appearance: cachectic <Dr. Alvaro Ramon MD - Last Filed: 06/10/22 21:24> Physical Exam Const Vital Signs: 06/10/22 19:28 06/10/22 20:08 06/10/22 20:10 Temperature 100.0 F H Temperature Source Temporal Pulse Rate 132 H Respiratory Rate 20 H Respiratory Effort Normal Non-Labored Blood Pressure 93/58 L Blood Pressure Mean 69 Pulse Ox 100 Oxygen Delivery Method Room Air Room Air 06/10/22 20:32 Temperature 98.8 F Temperature Source Oral Pulse Rate 109 H Respiratory Rate 24 H Respiratory Effort Blood Pressure 94/67 Blood Pressure Mean 76 Pulse Ox Oxygen Delivery Method Room Air MDM <AB Green - Last Filed: 06/10/22 21:07> MDM Lab Data Labs: Laboratory Results - last 24 hr 06/10/22 06/10/22 06/10/22 19:53 19:53 19:53 WBC 12.6 H RBC 2.79 L Hgb 8.7 L Hct 26.8 L MCV 96.1 MCH 31.2 MCHC 32.5 RDW Std Deviation 60.3 H RDW Coeff of Chanda 18.1 H Plt Count 62 L MPV 10.3 Neut % (Auto) Not Reportable Absolute Neuts (auto) 10.5 H Absolute Lymphs (auto) 0.88 Total Counted 100 Neutrophils % (Manual) 81 H Band Neutrophils % 2 Lymphocytes % (Manual) 7 L Monocytes % (Manual) 8 Metamyelocytes % 2 H Diff Path Review May foll Platelet Estimate MOD DEC Polychromasia RARE Anisocytosis 1+ PT 13.3 INR 1.0 APTT 34.2 Sodium 133 L Potassium 4.1 Chloride 103 Carbon Dioxide 27.0 Anion Gap 3 L BUN 23 H Creatinine 1.37 H Estim Creat Clear Calc 30.25 Est GFR (MDRD) Af Amer 49 L Est GFR (MDRD) Non-Af 40 L BUN/Creatinine Ratio 16.8 Glucose 104 Lactic Acid Calcium 10.0 Total Bilirubin 0.40 AST 16 ALT 17 Alkaline Phosphatase 140 H Total Protein 7.0 Albumin 3.3 Globulin 3.7 Albumin/Globulin Ratio 0.9 04/11/23 19:53 WBC RBC Hgb Hct MCV MCH MCHC RDW Std Deviation RDW Coeff of Chanda Plt Count MPV Neut % (Auto) Absolute Neuts (auto) Absolute Lymphs (auto) Total Counted Neutrophils % (Manual) Band Neutrophils % Lymphocytes % (Manual) Monocytes % (Manual) Metamyelocytes % Diff Path Review Platelet Estimate Polychromasia Anisocytosis PT INR APTT Sodium Potassium Chloride Carbon Dioxide Anion Gap BUN Creatinine Estim Creat Clear Calc Est GFR (MDRD) Af Amer Est GFR (MDRD) Non-Af BUN/Creatinine Ratio Glucose Lactic Acid 0.5 Calcium Total Bilirubin AST ALT Alkaline Phosphatase Total Protein Albumin Globulin Albumin/Globulin Ratio Radiography Diagnostic Testing: Clinical Impression(s) from Imaging Studies Chest X-Ray 06/10/22 19:48 IMPRESSION: Focal right basilar infiltrate. Electronically Signed: Sergo Casas DO at 20:13 EDT Reading Location ID and State: [facility] / [place] Tel [phone], Service support , EKG Sinus tachycardia: Comments: Sinus tachycardia, rate 114 bpm Differential Diagnosis Differential Diagnosis: Diverticulitis Why less likely: No left lower quadrant abdominal pain Treatment and Re-Evaluation :: Patient arrives in mild distress, patient does look worn out, slightly weak. Patient is a cancer patient with small cell carcinoma, patient presents to the emergency department for fever, weakness, generalized malaise and not feeling well. Patient's last cancer treatment 2 weeks ago with chemotherapy as well as radiation.Patient's pneumonia COVID-19, influenza was negative. Patient's laboratory values showed elevated white blood cell count at 12.6, patient is not leukopenic. Patient's hemoglobin is 8.7 which is low however 20 days ago her hemoglobin was 6.4. Patient's platelet count was also elevated at 62 which is low however better than 16 which it was 20 days ago. Patient's chemistries showed slight increase in her renal function with a creatinine 1.37, this is elevated from 20 days ago at 0.58. Patient was unable provide a urine sample at this time however patient did receive a chest x-ray and this did show a focal right basilar infiltrate. At this time, patient be treated with community-acquired pneumonia. Patient will need to be admitted to the hospital. Patient does meet SIRS criteria secondary to elevated white blood cell count as well as hypotension, tachycardia. Patient was started on Zithromax, Rocephin. Patient was also given IV fluids 1 L. Patient's blood pressure does maintain around 90 systolic. Patient will be admitted to the hospital, the hospitalist recommends ICU admission. Patient as well as the patient's daughter was made aware of all findings. They are happy with the plan of care and is stable for admission. <Dr. Alvaro Ramon MD - Last Filed: 06/10/22 21:24> [facility] MDM Narrative Medical decision making narrative: I have personally performed a face to face assessment of the patient and have reviewed the MILDRED Note. I performed a substantive portion of the visit including all aspects of the following. My corral findings include: History is remarkable for small cell carcinoma who completed radiation therapy on May 30 and last cycle of chemo 2 weeks ago who was seen yesterday at Dr. Nando Quezada's office. Blood work was obtained at that time. Patient does have thrombocytopenia. She had a documented temperature yesterday of 100.4. She was placed on doxycycline for cough. She is scheduled for outpatient CT of the chest. Patient states her blood pressure is normally elevated not low. She does complain of generalized weakness. She reports 20 loose stools today. He states antibiotics give her diarrhea. She has no known history of Pseudomonas enterocolitis. Presently she is denying abdominal pain. Exam is remarkable for elderly woman who is hypotensive, tachycardic tachypneic and elevated temperature of 100.0 ?F. She appears ill. She appears pale. She has alopecia due to her chemotherapy. HEENT exam is markable for dry mucosa. Lungs reveal rales right lower lobe with equivocal egophony. Heart is rapid and regular. There is no murmur, gallop or rub. Abdomen is soft nontender with increased bowel sounds. There is no palp pulsatile mass or abdominal bruit. There is no CVA tenderness noted. There is no dermatologic lesions or evidence of cellulitis. Medical Decision Making with patient having cough productive of colored sputum fever concerned she may have pneumonia. Sepsis work-up was undertaken. Also need to evaluate for infectious diarrhea and or Pseudomonas under colitis and she is presently on antibiotics. Other additions or changes: Patient received IV fluids for her hypotension. Blood work is remarkable for a white count of 12.6 with shift and 2 bands. H&H is 8.7 and 26.8. Coags are normal. Electrolyte panel is medically BUN of 23 and a creatinine of 1.37. Creatinine yesterday at the [facility] was normal. Lactate is normal at 0.5. Chest x-ray reveals a right lower lobe infiltrate. This was independent reviewed interpreted by me. Patient was started on antibiotics for [address] Nando Quezada was made aware of patient. Patient will require admission. History & Record Review Discussion w/independent historian: Patient, Friend and Other Additional record(s) reviewed:: Prior outpatient record (Documented in the MDM portion of the chart) and Prior labs (Documented in the MDM selection of the chart) Lab Data Labs: Laboratory Results - last 24 hr 06/10/22 06/10/22 06/10/22 19:53 19:53 19:53 WBC 12.6 H RBC 2.79 L Hgb 8.7 L Hct 26.8 L MCV 96.1 MCH 31.2 MCHC 32.5 RDW Std Deviation 60.3 H RDW Coeff of Chanda 18.1 H Plt Count 62 L MPV 10.3 Neut % (Auto) Not Reportable Absolute Neuts (auto) 10.5 H Absolute Lymphs (auto) 0.88 Total Counted 100 Neutrophils % (Manual) 81 H Band Neutrophils % 2 Lymphocytes % (Manual) 7 L Monocytes % (Manual) 8 Metamyelocytes % 2 H Diff Path Review May foll Platelet Estimate MOD DEC Polychromasia RARE Anisocytosis 1+ PT 13.3 INR 1.0 APTT 34.2 Sodium 133 L Potassium 4.1 Chloride 103 Carbon Dioxide 27.0 Anion Gap 3 L BUN 23 H Creatinine 1.37 H Estim Creat Clear Calc 30.25 Est GFR (MDRD) Af Amer 49 L Est GFR (MDRD) Non-Af 40 L BUN/Creatinine Ratio 16.8 Glucose 104 Lactic Acid Calcium 10.0 Total Bilirubin 0.40 AST 16 ALT 17 Alkaline Phosphatase 140 H Total Protein 7.0 Albumin 3.3 Globulin 3.7 Albumin/Globulin Ratio 0.9 06/10/22 19:53 WBC RBC Hgb Hct MCV MCH MCHC RDW Std Deviation RDW Coeff of Chanda Plt Count MPV Neut % (Auto) Absolute Neuts (auto) Absolute Lymphs (auto) Total Counted Neutrophils % (Manual) Band Neutrophils % Lymphocytes % (Manual) Monocytes % (Manual) Metamyelocytes % Diff Path Review Platelet Estimate Polychromasia Anisocytosis PT INR APTT Sodium Potassium Chloride Carbon Dioxide Anion Gap BUN Creatinine Estim Creat Clear Calc Est GFR (MDRD) Af Amer Est GFR (MDRD) Non-Af BUN/Creatinine Ratio Glucose Lactic Acid 0.5 Calcium Total Bilirubin AST ALT Alkaline Phosphatase Total Protein Albumin Globulin Albumin/Globulin Ratio Radiography Diagnostic Testing: Clinical Impression(s) from Imaging Studies Chest X-Ray 06/10/22 19:48 IMPRESSION: Focal right basilar infiltrate. Electronically Signed: Sergo Casas DO at 20:13 EDT Reading Location ID and State: [facility] / [place] Tel [phone], Service support , Differential Diagnosis Chest pain/SOB: pulmonary embolism Reason(s) PE less likely: Positive for not hypoxic and Other (Patient has pneumonia and infiltrate on x-ray), ACS ACS: Positive for EKG without ischemia and history not suggestive of ischemia pain and pneumothorax Reason(s) pneumothorax less likely: Positive for ADA ACCOMMODATION CONSULTANT withhout PTX Management Discussion w/another healthcare provider: Hospitalist and In Home Sales Consultant (Dr. Nando Quezada) <Dr. Alvaro Ramon MD - Last Filed: 06/10/22 21:24> Critical Care Time Critical Care Time: Yes Critical care time (excluding procedures): 30-74 minutes (32), Including time spent: (History, physical, documentation, interpretation laboratory is also initiation of therapy for pneumonia and hypotension), Discussing w/Patient &/or Family/Jute Bag Clipper, Discussing w/Consultants (Hospitalist and oncologist, Dr. Nando Quezada) and Arranging Admission or Transfer Discharge Plan Dx/Rx/DC Orders Clinical Impression: Right lower lobe pulmonary infiltrate, Acute hypotension, SIRS (systemic inflammatory response syndrome), Small cell carcinoma of lung, Diarrhea, Acute renal insufficiency, Anemia, Thrombocytopenia Disposition Disposition: [facility]
[2022-06-10] MEDS: 0.9% Normal Saline 1,000 ML 999 ML IV (20:04)
[2022-06-10] MEDS: Acetaminophen 325 MG Tablet 650 MG PO (20:04)
[2022-06-10 20:07] LABS: Hematocrit 26.8 % (37-47); Hemoglobin 8.7 g/dL (12.0-15.0); Mean Corp Hgb Conc 32.5 g/dL (32-36); Mean Corpuscular Hgb 31.2 pg (27.0-32.0); Mean Corpuscular Volume 96.1 fL (81-99); Mean Platelet Vol. 10.3 fl (6.2-12.0); POSITIVE COUNT YES; POSITIVE DIFFERENTIAL YES; POSITIVE MORPHOLOGY YES; Platelet Count 62 K/mm3 (150-450); RBC Distribution Width CV 18.1 % (11.6-14.6); RBC Distribution Width SD 60.3 fl (35.1-43.9); Red Blood Count 2.79 M/mm3 (4.2-5.4); White Blood Count 12.6 K/mm3 (4.4-11.0)
[2022-06-10 20:10] LABS: Differential Indicated MANUAL DIFF
[2022-06-10 20:13] LABS: Prothrombin Time (Protime)PT. 13.3 SECONDS (11.7-14.9)
[2022-06-10 20:14] LABS: Partial Thromboplast Time 34.2 Seconds (24.1-36.2)
[2022-06-10 20:22] LABS: ALB/GLOB Ratio 0.9 RATIO (0.9-2.4); AST(SGOT) 16 U/L (15-37); Alanine Aminotransfer ALT/SGPT 17 U/L (13-56); Albumin, Serum 3.3 g/dL (3.2-5.0); Alkaline Phosphatase 140 U/L (45-117); Anion Gap 3 (5-15); BUN 23 mg/dL (7-18); BUN/Creat Ratio 16.8 RATIO (10-20); Chloride 103 mmol/L (98-107); Creatinine, Serum 1.37 mg/dL (0.55-1.02); EST Glomerular Filtration Rate 40 mL/min (>60); Est Glom Filt Rate - Afr Amer 49 mL/min (>60); Estimated Creatinine Clearance 30.25 ml/min; Globulin 3.7 g/dL (2.2-4.2); Glucose 104 mg/dL (74-106); Potassium 4.1 mmol/L (3.5-5.1); Sodium Level 133 mmol/L (136-145)
[2022-06-10 20:34] LABS: Lactic Acid 0.5 mmol/L (0.4-1.9)
[2022-06-10 20:37] LABS: Lymphocyte 7 % (19-41); Metamyelocyte 2 % (0-1); Monocyte 8 % (0-10); Neutrophil-Band 2 % (0-5); Neutrophil-Segmented 81 % (47-70); Total Cells Counted 100 (MANUAL DIFF)
[2022-06-10 20:39] LABS: Anisocytosis 1+; Platelet Estimate MOD DEC (ADEQ); Polychromasia RARE
[2022-06-10 20:40] LABS: Absolute Lymphocyte Count 0.88 X10^3/uL (0.83-4.51); Absolute Neutrophil Count 10.5 X10^3/uL (2.0-7.7)
[2022-06-10] MEDS: Ceftriaxone 1 GM/50 ML BAG IV (20:40)
--- NOTE | 2022-06-10 20:56 | PCM.HP.STD ---
HPI - General General Date of Admission: 06/10/22 Date of Service: 06/10/22 Chief Complaint: malaise HPI Narrative MICHAEL DELGADO, is a 71 F with a significant history of small cell lung cancer who finished her last chemotherapy and radiation on May 29, 2022 presented emergency department with 2 to 3-day history of persistent malaise. Associated with her symptoms is diarrhea. On the day of presentation she had about 20 bowel movement that was resolved with taking 2 tablets of Imodium. Patient was started on antibiotics (doxycycline) a day before presentation for probable diverticulitis. She reports that doxycycline did not make her diarrhea any worse even though in the past she has had diarrhea with antibiotics. [facility] Medical History Small cell lung cancer in adult Smoker SVC (superior vena cava obstruction) Home Medications aspirin 81 mg tablet,delayed release 81 mg PO DAILY 04/14/22 [History Last Taken 05/20/22] clopidogrel 75 mg tablet (Plavix) 75 mg PO DAILY 04/14/22 [History Last Taken 05/20/22] Allergy/AdvReac Type Severity Reaction Status Date / Time bee venom protein (honey bee) Allergy Anaphylaxis Verified 06/10/22 19:27 [bees] povidone-iodine Allergy Rash Verified 06/10/22 19:27 [From Betadine] Family History Other Cancer Heart disease Surgical History Hx of tonsillectomy Social History Smoking Status: Former smoker ROS ROS Narrative Pertinent positives and pertinent negatives as noted in HPI. All other systems were reviewed and are negative Vital Signs Vital Signs Vital Signs: 06/10/22 19:28 06/10/22 20:08 06/10/22 20:10 Temperature 100.0 F H Temperature Source Temporal Pulse Rate 132 H Respiratory Rate 20 H Respiratory Effort Normal Non-Labored Blood Pressure 93/58 L Blood Pressure Mean 69 Pulse Ox 100 Oxygen Delivery Method Room Air Room Air 06/10/22 20:32 Temperature 98.8 F Temperature Source Oral Pulse Rate 109 H Respiratory Rate 24 H Respiratory Effort Blood Pressure 94/67 Blood Pressure Mean 76 Pulse Ox Oxygen Delivery Method Room Air Weight Weight: 55.7 kg Body Mass Index (BMI) 21.7 Physical Exam Narrative Physical exam: General: Well-nourished, well-developed. Head: Normocephalic, atraumatic, no tenderness Eyes: Vision is grossly intact. EOMI ENT, no trauma, no rhinorrhea Neck: Nontender, No thyromegaly. CVS: Regular rate and rhythm. S1-S2 present. No murmur, gallop or rub. Respiratory : Rales at a posterior middle lung crockett, chest wall nontender Abdomen: Soft, nontender, nondistended, normal bowel sounds, no masses : Deferred Back: Nontender, no CVA tenderness, no midline spinal tenderness, deformities, step-offs Extremities: Nontender full range of motion, no trauma Skin: Normal color, no trauma, abrasions Neuro: Alert, oriented, cranial nerves II through XII grossly intact. Psychiatry: Normal mood. Normal affect. Not depressed. Not anxious. Results Lab / Micro Data Result Diagrams: 06/10/22 19:53 06/10/22 19:53 Labs: Laboratory Results - last 24 hr 06/10/22 19:53: WBC 12.6 H, RBC 2.79 L, Hgb 8.7 L, Hct 26.8 L, MCV 96.1, MCH 31.2, MCHC 32.5, RDW Std Deviation 60.3 H, RDW Coeff of Chanda 18.1 H, Plt Count 62 L, MPV 10.3, Neut % (Auto) Not Reportable, Absolute Neuts (auto) 10.5 H, Absolute Lymphs (auto) 0.88, Total Counted 100, Neutrophils % (Manual) 81 H, Band Neutrophils % 2, Lymphocytes % (Manual) 7 L, Monocytes % (Manual) 8, Metamyelocytes % 2 H, Diff Path Review May foll, Platelet Estimate MOD DEC, Polychromasia RARE, Anisocytosis 1+ 06/10/22 19:53: PT 13.3, INR 1.0, APTT 34.2 06/10/22 19:53: Sodium 133 L, Potassium 4.1, Chloride 103, Carbon Dioxide 27.0, Anion Gap 3 L, BUN 23 H, Creatinine 1.37 H, Estim Creat Clear Calc 30.25, Est GFR (MDRD) Af Amer 49 L, Est GFR (MDRD) Non-Af 40 L, BUN/Creatinine Ratio 16.8, Glucose 104, Calcium 10.0, Total Bilirubin 0.40, AST 16, ALT 17, Alkaline Phosphatase 140 H, Total Protein 7.0, Albumin 3.3, Globulin 3.7, Albumin/Globulin Ratio 0.9 06/10/22 19:53: Lactic Acid 0.5 Radiology Impression Chest X-Ray 06/10/22 19:48 IMPRESSION: Focal right basilar infiltrate. Electronically Signed: Sergo Casas DO at 20:13 EDT Reading Location ID and State: [facility] / [place] Tel [phone], Service support , Assessment & Plan Assessment/Plan (1) Right lower lobe pulmonary infiltrate: (2) DORIAN (acute kidney injury): (3) Diarrhea: PLAN: Plan Acute Gastroenteritis Enteropathogenic panel and C. difficile ordered at the emergency department. Follow. Received normal saline bolus at the emergency department. Gentle IV hydration ordered. Lactobacillus ordered. Potassium level is normal. Check magnesium level. Pneumonia Lactic acid: Normal at 0.5. Blood culture ?2 is pending Chest x-ray: Focal right basilar infiltrate. White count on presentation was 12,600. White count on 05/21/2022 was 2700. Trend CBC. Respiratory Gram stain and culture pending Antibiotics: Azithromycin and cefepime ordered. IV hydration as above. Albuterol as needed Legionella antigen screen and Strep antigen ordered DORIAN Creatinine on presentation was 1.37. Baseline creatinine is about 0.62. BUN of 23. Likely secondary to dehydration from diarrhea. IV fluids as above. Avoid nephrotoxins. Trend BMP. Thrombocytopenia Platelet on presentation was 62. Platelets on 04/23/2022 was 16. Trend CBC. Anemia Hemoglobin on presentation was 8.7. Hemoglobin on 05/21/22 was 6.4; and on 03/21/2022 was 12.3. Small cell lung cancer Stable DVT prophylaxis SCD Charges/Coding Visit Charges Inpatient E&M: 91860 Init Hosp L3
[2022-06-10] MEDS: 0.9% Normal Saline 1,000 ML 75 ML IV (22:00)
[2022-06-11] VITALS (18 sets, daily range): BP systolic 95–121; BP diastolic 53–77; PULSE 93–110; RESP 12–28; TEMP 36.2–37.2; O2SAT 92–98; BMI 22.8
[2022-06-11] MEDS: guaiFENesin 1,200 MG Tablet 1200 MG PO ×3 (00:52→23:44)
[2022-06-11 04:52] LABS: Hematocrit 23.3 % (37-47); Hemoglobin 7.6 g/dL (12.0-15.0); Mean Corp Hgb Conc 32.6 g/dL (32-36); Mean Corpuscular Hgb 31.5 pg (27.0-32.0); Mean Corpuscular Volume 96.7 fL (81-99); Mean Platelet Vol. 10.4 fl (6.2-12.0); POSITIVE COUNT YES; POSITIVE DIFFERENTIAL YES; POSITIVE MORPHOLOGY YES; Platelet Count 56 K/mm3 (150-450); RBC Distribution Width CV 17.9 % (11.6-14.6); RBC Distribution Width SD 60.6 fl (35.1-43.9); Red Blood Count 2.41 M/mm3 (4.2-5.4); White Blood Count 9.9 K/mm3 (4.4-11.0)
[2022-06-11 04:56] LABS: Differential Indicated MANUAL DIFF
[2022-06-11 05:10] LABS: Anion Gap 4 (5-15); BUN 20 mg/dL (7-18); BUN/Creat Ratio 25.2 RATIO (10-20); Calcium,Total 8.8 mg/dL (8.5-10.1); Chloride 107 mmol/L (98-107); Creatinine, Serum 0.79 mg/dL (0.55-1.02); EST Glomerular Filtration Rate 75 mL/min (>60); Est Glom Filt Rate - Afr Amer 91 mL/min (>60); Estimated Creatinine Clearance 39.63 ml/min; Glucose 90 mg/dL (74-106); Magnesium 1.3 mg/dL (1.6-2.6); Potassium 3.8 mmol/L (3.5-5.1); Sodium Level 135 mmol/L (136-145)
[2022-06-11 05:47] LABS: Total Cells Counted 100 (MANUAL DIFF)
[2022-06-11 05:48] LABS: Absolute Neutrophil Count 8.1 X10^3/uL (2.0-7.7); Hypochromasia 1+; Lymphocyte 5 % (19-41); Metamyelocyte 3 % (0-1); Monocyte 4 % (0-10); Myelocyte 6 % (0-0); Neutrophil # 8.14 X10^3/uL (2.7-7.7); Neutrophil-Band 8 % (0-5); Neutrophil-Segmented 74 % (47-70); Platelet Estimate MKD DEC (ADEQ); Red Cell Morphology N CYTIC NORMAL (NORM C&C)
[2022-06-11] MEDS: Magnesium Sulfate 4gm/100mL 4 GM/100 ML IV.SOLN. IV (06:46)
--- NOTE | 2022-06-11 07:30 | PCM.PN.HOSP ---
Reason for Visit Reason for Visit: Diagnoses Acute kidney failure, unspecified (06/10/22) Diarrhea, unspecified (06/10/22) Other nonspecific abnormal finding of lung field (06/10/22) Follow-up for pneumonia, acute gastroenteritis, hypovolemia due to diarrhea and DORIAN Subjective Subjective Patient is still feeling very dehydrated. Urine is dark yellow in color. Denies burning micturition. Objective Data Objective Data Vital Signs: Vital Signs Temp Pulse Resp BP Pulse Ox O2 Del Method 98.4 F 110 H 21 H 111/75 92 Room Air 06/11/22 04:00 06/11/22 07:00 06/11/22 07:00 06/11/22 07:00 06/11/22 07:00 06/11/22 07:00 Oxygen Delivery Method Room Air Weight: 125 lb 3.561 oz Body Mass Index (BMI) 22.8 Intake & Output: Intake and Output for Last 24 Hours 06/09/22 06/10/22 06/11/22 23:59 23:59 23:59 Intake Total 1305 / 1305 360 / 360 Output Total 50 / 50 Balance 1305 / 1255 310 / 310 Lab / Micro Data Result Diagrams: 06/11/22 04:40 06/11/22 04:40 Labs: Laboratory Results - last 24 hr 06/10/22 19:53: WBC 12.6 H, RBC 2.79 L, Hgb 8.7 L, Hct 26.8 L, MCV 96.1, MCH 31.2, MCHC 32.5, RDW Std Deviation 60.3 H, RDW Coeff of Chanda 18.1 H, Plt Count 62 L, MPV 10.3, Neut % (Auto) Not Reportable, Absolute Neuts (auto) 10.5 H, Absolute Lymphs (auto) 0.88, Total Counted 100, Neutrophils % (Manual) 81 H, Band Neutrophils % 2, Lymphocytes % (Manual) 7 L, Monocytes % (Manual) 8, Metamyelocytes % 2 H, Diff Path Review May foll, Platelet Estimate MOD DEC, Polychromasia RARE, Anisocytosis 1+ 06/10/22 19:53: PT 13.3, INR 1.0, APTT 34.2 06/10/22 19:53: Sodium 133 L, Potassium 4.1, Chloride 103, Carbon Dioxide 27.0, Anion Gap 3 L, BUN 23 H, Creatinine 1.37 H, Estim Creat Clear Calc 30.25, Est GFR (MDRD) Af Amer 49 L, Est GFR (MDRD) Non-Af 40 L, BUN/Creatinine Ratio 16.8, Glucose 104, Calcium 10.0, Total Bilirubin 0.40, AST 16, ALT 17, Alkaline Phosphatase 140 H, Total Protein 7.0, Albumin 3.3, Globulin 3.7, Albumin/Globulin Ratio 0.9 06/10/22 19:53: Lactic Acid 0.5 06/11/22 04:40: WBC 9.9, RBC 2.41 L, Hgb 7.6 L, Hct 23.3 L, MCV 96.7, MCH 31.5, MCHC 32.6, RDW Std Deviation 60.6 H, RDW Coeff of Chanda 17.9 H, Plt Count 56 L, MPV 10.4, Neut % (Auto) Not Reportable, Absolute Neuts (auto) 8.1 H, Absolute Lymphs (auto) 0.50 L, Total Counted 100, Neutrophils % (Manual) 74 H, Band Neutrophils % 8 H, Lymphocytes % (Manual) 5 L, Monocytes % (Manual) 4, Metamyelocytes % 3 H, Myelocytes % 6 H, Diff Path Review May , Platelet Estimate MKD DEC, RBC Morphology N CYTIC, Hypochromasia 1+ 06/11/22 04:40: Sodium 135 L, Potassium 3.8, Chloride 107, Carbon Dioxide 24.0, Anion Gap 4 L, BUN 20 H, Creatinine 0.79, Estim Creat Clear Calc 39.63, Est GFR (MDRD) Af Amer 91, Est GFR (MDRD) Non-Af 75, BUN/Creatinine Ratio 25.2 H, Glucose 90, Calcium 8.8, Magnesium 1.3 L Micro: Microbiology 06/10/22 22:25 Urine, Clean Catch Legionella Antigen - Final 06/10/22 22:25 Urine, Clean Catch Streptococcus pneumoniae Antigen (M - Final 06/10/22 19:50 Nasal Secretion SARS-CoV-2 & FLU Antigen (Rapid) - Final Radiography Diagnostic Testing: Radiology Impression Chest X-Ray 06/10/22 19:48 IMPRESSION: Focal right basilar infiltrate. Electronically Signed: Sergo Casas DO at 20:13 EDT Reading Location ID and State: [address] [place] [address] Tel [phone], Service support , Physical Exam Narrative Seen and examined. Patient feels dry and dehydrated. Urine is dark yellow. On monitoring analyst sinus tachycardia. No chest pain or shortness of breath at rest. Physical exam General: Alert, Oriented x3, Cooperative HEENT: Atraumatic, PERRLA, EOMI, Normocephalic Oral: Oral mucosa dry. No Gingival or Mucosal Lesions/ Ulcerations Neck: Supple, No JVD, Negative Carotid Bruits Lungs: Air entry diminished in bilateral lung bases. Subtle fine right basilar crepitation. Cardiovascular: Sinus tachycardia, Normal S1, Normal S2, No murmurs Abdomen: Bowel Sounds Present, Soft, Non Tender, Non-Distended : No dysuria. No renal angle tenderness. No suprapubic tenderness. Extremities: No edema, Capillary Refill Less than 3 Seconds Skin: No rashes, No breakdown Musculoskeletal: No Tenderness to Palpation of Joints or Extremities. ROM intact and full. 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 Patient also started on doxycycline for probable diverticulitis a day before admission 1. Hypovolemia due to acute gastroenteritis probably due to chemotherapeutic side effect: Patient BP was in the 90s in the ED. Patient had normal saline bolus in ED. 06/11: Patient on lactobacillus.Enteropathogenic panel and C. difficile ordered at the emergency department. Potassium level is normal. Severe hypomagnesemia, magnesium is getting replaced. Serum phosphorus ordered. Patient still very severely dehydrated therefore normal saline +40 mEq KCl at 150 mill per hour for 2 L. Monitor intake and output. 2. Right lower lobe pneumonia with history of small cell carcinoma: Neutropenic precaution with hand hygiene. Chest x-ray independently reviewed and shows focal right lower lobe infiltrate. Rapid SARS-CoV-2 and flu antigen are negative. Urinary antigens are negative. Lactic acid: Normal at 0.5. Blood culture ?2 is pending. Patient had leukocytosis 12,600 on admission repeat normal. Bands 8%. Neutrophils 74%, lymphocyte 5%, metamyelocytes 3%, myelocytes 6%. Overall it is suggestive of left shift Respiratory Gram stain and culture pending Antibiotics: Azithromycin and cefepime IV hydration as above. Albuterol as needed DORIAN Creatinine on presentation was 1.37. Baseline creatinine is about 0.62. BUN of 23. Likely secondary to dehydration from diarrhea. IV fluids as above. Avoid nephrotoxins. Monitor kidney function electrolytes Thrombocytopenia Platelet on presentation was 62. Platelets on 04/23/2022 was 16. Trend CBC. Anemia Hemoglobin on presentation was 8.7. Hemoglobin on 05/21/22 was 6.4; and on 03/21/2022 was 12.3. Small cell lung cancer right lung. Follows Dr. Quezada. DVT prophylaxis SCD Total time of the visit including total time spent in counseling or coordination of care, (more than 50% of the total time, spent in obtaining medical information from nurses and other ancillary care providers,explaining to the patient about labs, imaging, diagnosis and management of active complex medical conditions), discussion with traffic safety administrator, review of labs and imaging is 50 minutes. Microbiology Past 72 Hours 06/10/22 22:25 Urine, Clean Catch Legionella Antigen - Final 06/10/22 22:25 Urine, Clean Catch Streptococcus pneumoniae Antigen (M - Final 06/10/22 19:50 Nasal Secretion SARS-CoV-2 & FLU Antigen (Rapid) - Final Laboratory Results 06/10/22 19:53: WBC 12.6 H, RBC 2.79 L, Hgb 8.7 L, Hct 26.8 L, MCV 96.1, MCH 31.2, MCHC 32.5, RDW Std Deviation 60.3 H, RDW Coeff of Chanda 18.1 H, Plt Count 62 L, MPV 10.3, Neut % (Auto) Not Reportable, Absolute Neuts (auto) 10.5 H, Absolute Lymphs (auto) 0.88, Total Counted 100, Neutrophils % (Manual) 81 H, Band Neutrophils % 2, Lymphocytes % (Manual) 7 L, Monocytes % (Manual) 8, Metamyelocytes % 2 H, Diff Path Review May foll, Platelet Estimate MOD DEC, Polychromasia RARE, Anisocytosis 1+ 06/10/22 19:53: PT 13.3, INR 1.0, APTT 34.2 06/10/22 19:53: Sodium 133 L, Potassium 4.1, Chloride 103, Carbon Dioxide 27.0, Anion Gap 3 L, BUN 23 H, Creatinine 1.37 H, Estim Creat Clear Calc 30.25, Est GFR (MDRD) Af Amer 49 L, Est GFR (MDRD) Non-Af 40 L, BUN/Creatinine Ratio 16.8, Glucose 104, Calcium 10.0, Total Bilirubin 0.40, AST 16, ALT 17, Alkaline Phosphatase 140 H, Total Protein 7.0, Albumin 3.3, Globulin 3.7, Albumin/Globulin Ratio 0.9 06/10/22 19:53: Lactic Acid 0.5 06/11/22 04:40: WBC 9.9, RBC 2.41 L, Hgb 7.6 L, Hct 23.3 L, MCV 96.7, MCH 31.5, MCHC 32.6, RDW Std Deviation 60.6 H, RDW Coeff of Chanda 17.9 H, Plt Count 56 L, MPV 10.4, Neut % (Auto) Not Reportable, Absolute Neuts (auto) 8.1 H, Absolute Lymphs (auto) 0.50 L, Total Counted 100, Neutrophils % (Manual) 74 H, Band Neutrophils % 8 H, Lymphocytes % (Manual) 5 L, Monocytes % (Manual) 4, Metamyelocytes % 3 H, Myelocytes % 6 H, Diff Path Review May rupali Platelet Estimate MKD DEC, RBC Morphology N CYTIC, Hypochromasia 1+ 06/11/22 04:40: Sodium 135 L, Potassium 3.8, Chloride 107, Carbon Dioxide 24.0, Anion Gap 4 L, BUN 20 H, Creatinine 0.79, Estim Creat Clear Calc 39.63, Est GFR (MDRD) Af Amer 91, Est GFR (MDRD) Non-Af 75, BUN/Creatinine Ratio 25.2 H, Glucose 90, Calcium 8.8, Magnesium 1.3 L Clinical Impression(s) from Imaging Studies Chest X-Ray 06/10/22 19:48 IMPRESSION: Focal right basilar infiltrate. Charges/Coding Visit Charges Inpatient E&M: 67936 Subs Hosp L3
--- NOTE | 2022-06-11 07:37 | EX.PCM.CONCC ---
Assessment & Plan Assessment/Plan (1) Right lower lobe pulmonary infiltrate: (2) DORIAN (acute kidney injury): (3) Small cell carcinoma of lung: PLAN: Plan RECOMMENDATIONS: 1. Obtain viral respiratory panel 2. Continue antibiotics pending cultures 3. No Imodium until C. difficile status verified 4. Okay to leave the intensive care unit 5. Hold on transfusions for now 6. We will sign off from a pulmonary/critical care perspective IMPRESSIONS: 1. Fever in the setting of chemotherapy/small cell lung cancer Unclear etiology at this time. Patient does have a focal right lower lobe infiltrate, but it is unclear if this is related to her concomitant small cell lung carcinoma. Empiric antibiotics pending cultures would be reasonable. Patient is not neutropenic, so cefepime is likely not necessary, but defer to primary service. Patient did have some marginal blood pressures, but reportedly has had some GI volume loss. Patient does have some evidence of acute kidney injury with a creatinine of 1.37 and a baseline of approximately 0.6. We will obtain a viral respiratory panel. 2. Diarrhea/thrombocytopenia/anemia Possibly chemo induced. Would not recommend giving Imodium until C. difficile can be ruled out as Imodium increases the risk for toxic megacolon. Patient does not have a significant leukocytosis, but is on chemotherapy. Blood counts are actually improved compared to recent testing. No indication for transfusion of platelets at this time, but will have to watch closely. 3. Advanced age/small cell lung carcinoma/anemia Complicates care, management, recovery and prognosis. Likely does not require oncology consultation at this time, but they may benefit from being informed on discharge of the hospital course. Recommend SCDs for DVT prophylaxis given thrombocytopenia. HPI Consult Data Date of Consult: 06/11/22 HPI Narrative Reason for Consultation: Fever HPI Narrative: MICHAEL DELGADO is a 71 F, with past medical history listed below, who presents to [place] on 06/10/2022 secondary to fever and more fatigue. Patient had also reported that she had chemotherapy on May 29 and since that time has had many more complaints of worsening weakness, diarrhea and dyspnea on exertion despite having no change in chemotherapy regimen. Patient is receiving radiation therapy also. Patient reportedly has had fevers of 100.7 at home and he called her oncologist and was asked to come to the ER for evaluation. Patient has not had any hemoptysis, hematuria, melena or hematochezia. Patient does have a history of diverticulitis, but does not feel that this explains what I am feeling. In the ER, patient was noted to have a temperature of 100 ?F, tachycardic at 132 bpm and hypotensive at 93/58. Patient was tolerating room air at that time. Laboratory data showed a white blood cell count of 12.6, hemoglobin of 8.7 and platelets of 62. Coagulation studies were within normal limits. Chemistry showed an elevated bicarbonate of 27, creatinine of 1.37 and an alkaline phosphatase of 140. Lactate was within normal limit. Chest x-ray did show a focal right basilar infiltrate. Old studies were not available for review. Patient also was noted to be negative for COVID-19 and influenza. Patient was treated for community-acquired pneumonia and admitted to the hospital. Patient did receive 1 L of IV fluids given marginal systolic blood pressures. Since admission to the hospital, patient feels overall slightly improved compared to previous. Patient is still having intermittent diarrhea, but not enough to send for C. difficile evaluation. Patient does report a cough productive of thick yellow sputum, which is new for her. Patient is unaware of any sick contacts. Patient does follow with Dr. Fabiana Newman at the [facility]. Patient feels that her lungs are not that bad. Patient does state that her small cell was found in the right side, but is unaware of the exact location. Patient is not reporting any dysuria. Review of systems otherwise negative from a constitutional, HEENT, respiratory, cardiovascular, GI, genitourinary, musculoskeletal, skin, neurologic, psychiatric and hematologic system unless stated above. [facility] Medical History Small cell lung cancer in adult Smoker SVC (superior vena cava obstruction) Home Medications aspirin 81 mg tablet,delayed release 81 mg PO DAILY 04/14/22 [History Last Taken 05/20/22] clopidogrel 75 mg tablet (Plavix) 75 mg PO DAILY 04/14/22 [History Last Taken 05/20/22] Allergy/AdvReac Type Severity Reaction Status Date / Time bee venom protein (honey bee) Allergy Anaphylaxis Verified 06/10/22 19:27 [bees] povidone-iodine Allergy Rash Verified 06/10/22 19:27 [From Betadine] Family History Other Cancer Heart disease Surgical History Hx of tonsillectomy Social History Smoking Status: Former smoker ROS ROS Narrative See HPI Physical Exam Const alert, oriented x3 and no apparent distress General Appearance: cooperative and well developed HEENT normocephalic, head/scalp atraumatic and moist oral mucous membranes HEENT Narrative: Alopecia noted Eyes PERRL and EOMs intact bilaterally Eyes Narrative: Slightly pale conjunctiva Neck full ROM and no lymphadenopathy Chest inspection of chest normal Resp normal respiratory effort and no use of accessory muscles Effort and Inspection: able to speak in complete sentences Auscultation: diminished lung sounds; Negative for rales, rhonchi or wheezes Percussion: Negative for dullness Cardio regular rate, regular rhythm, S1 normal heart sound, S2 normal heart sound, no murmurs, no rub and no gallops GI normal to inspection, nondistended, normoactive bowel sounds no CVA tenderness Extremity no clubbing, cyanosis or edema Skin no rashes or lesions noted Neuro oriented x3, CN's II-XII intact bilaterally, moves all extremities and no focal motor deficits Psych cooperative and affect normal Medical Records Data Attestation: I reviewed the patient's medical records Lab / Micro Data Attestation: I reviewed the patient's lab results. Result Diagrams: 06/11/22 04:40 06/11/22 04:40 Labs: Laboratory Results - last 24 hr 06/10/22 19:53: WBC 12.6 H, RBC 2.79 L, Hgb 8.7 L, Hct 26.8 L, MCV 96.1, MCH 31.2, MCHC 32.5, RDW Std Deviation 60.3 H, RDW Coeff of Chanda 18.1 H, Plt Count 62 L, MPV 10.3, Neut % (Auto) Not Reportable, Absolute Neuts (auto) 10.5 H, Absolute Lymphs (auto) 0.88, Total Counted 100, Neutrophils % (Manual) 81 H, Band Neutrophils % 2, Lymphocytes % (Manual) 7 L, Monocytes % (Manual) 8, Metamyelocytes % 2 H, Diff Path Review May foll, Platelet Estimate MOD DEC, Polychromasia RARE, Anisocytosis 1+ 06/10/22 19:53: PT 13.3, INR 1.0, APTT 34.2 06/10/22 19:53: Sodium 133 L, Potassium 4.1, Chloride 103, Carbon Dioxide 27.0, Anion Gap 3 L, BUN 23 H, Creatinine 1.37 H, Estim Creat Clear Calc 30.25, Est GFR (MDRD) Af Amer 49 L, Est GFR (MDRD) Non-Af 40 L, BUN/Creatinine Ratio 16.8, Glucose 104, Calcium 10.0, Total Bilirubin 0.40, AST 16, ALT 17, Alkaline Phosphatase 140 H, Total Protein 7.0, Albumin 3.3, Globulin 3.7, Albumin/Globulin Ratio 0.9 06/10/22 19:53: Lactic Acid 0.5 06/11/22 04:40: WBC 9.9, RBC 2.41 L, Hgb 7.6 L, Hct 23.3 L, MCV 96.7, MCH 31.5, MCHC 32.6, RDW Std Deviation 60.6 H, RDW Coeff of Chanda 17.9 H, Plt Count 56 L, MPV 10.4, Neut % (Auto) Not Reportable, Absolute Neuts (auto) 8.1 H, Absolute Lymphs (auto) 0.50 L, Total Counted 100, Neutrophils % (Manual) 74 H, Band Neutrophils % 8 H, Lymphocytes % (Manual) 5 L, Monocytes % (Manual) 4, Metamyelocytes % 3 H, Myelocytes % 6 H, Diff Path Review Cherise zapien Platelet Estimate MKD DEC, RBC Morphology N CYTIC, Hypochromasia 1+ 06/11/22 04:40: Sodium 135 L, Potassium 3.8, Chloride 107, Carbon Dioxide 24.0, Anion Gap 4 L, BUN 20 H, Creatinine 0.79, Estim Creat Clear Calc 39.63, Est GFR (MDRD) Af Amer 91, Est GFR (MDRD) Non-Af 75, BUN/Creatinine Ratio 25.2 H, Glucose 90, Calcium 8.8, Magnesium 1.3 L Micro: Microbiology 06/10/22 22:25 Urine, Clean Catch Legionella Antigen - Final 06/10/22 22:25 Urine, Clean Catch Streptococcus pneumoniae Antigen (M - Final 06/10/22 19:50 Nasal Secretion SARS-CoV-2 & FLU Antigen (Rapid) - Final Radiology Impression Chest X-Ray 06/10/22 19:48 IMPRESSION: Focal right basilar infiltrate. Electronically Signed: Sergo Casas DO at 20:13 EDT Reading Location ID and State: [facility] / [place] Tel [phone], Service support , Charges/Coding Visit Charges Inpatient E&M: 75668 Init Hosp L2
[2022-06-11 08:26] LABS: Phosphorus 2.7 mg/dL (2.5-4.9)
[2022-06-11] MEDS: Potassium Chloride 40 MEQ in 0.9% Normal Saline 1,000 ML 150 MEQ IV ×2 (11:01→17:57)
[2022-06-11] MEDS: Ensure Plus High Protein 120 ML LIQUID PO ×2 (11:01→17:56)
--- NOTE | 2022-06-11 12:00 | CASEMGMT ---
Addendum entered by Derrell Crews 06/12/22 11:52: Vanco (Firvanq) script has been e-scribed to [facility]. This RN CM was informed by the pharmacy that it is showing as Not covered by insurance. Call placed to Med D dept @ [phone] and informed that the liquid is non-formulary, but the capsules would be formulary. Request for authorization for the liquid form sent via [id number] @ this time w/request for expedited review. Roman: [id number]. Cost of liquid Firvanq would be $163 w/Good Rx card. Pt made aware of above. She states, if insurance does not approve it, and if Dr Jones prefers the liquid over the capsule, then she could afford to pay the $163 for it. Original Note: RN CM Face to Face with patient for initial transition planning/care coordination assessment. RN CM introduced self and role at [facility]. Patient lying in bed, alert and oriented. Patient willing to participate in assessment and is able to answer all questions appropriately. Care providers, pharmacy, and demographics verified. Patient wishes to discharge home, denies need for home health at this time. Patient states he has no further needs or concerns at this time. CM to follow for discharge planning needs that may arise. PCP: [facility] Specialists: Damien oncologist; [facility]erred [facility] Insurance: [employer] Prescription Benefit: yes Living Will/HPOA: yes, daughter Emily Jay LNOK: daughter Living Arrangements: Patient is staying with daughter in a single story home with 2 steps to enter the home. Patient states she is independent at home. Transportation: self, daughter DME/HHC: Patient denies DME in the home. No previous HHC or SNF. Monitor for home oxygen. Disposition Plan: Patient to discharge home with family support and follow-up plans in place. Will monitor for home oxygen Cathryn GUZMAN, RN, CM
[2022-06-11 14:05] LABS: Mucous, Urine 0 SEEN /hpf (<or=2+); White Blood Cells 0 SEEN /hpf (0-5)
[2022-06-11 14:09] LABS: Color, Urine Yellow (Yellow); Glucose, Dipstick Normal (Normal); Ketone-Dipstick 5 mg/dl (Negative); Leukocyte Esterase-Dipstick Negative /ul (Negative); Nitrite-Dipstick Negative (Negative); Occult Blood-Urine 150 /ul (Negative); Protein-Dipstick 15 mg/dl (Negative); Urine Bilirubin Dipstick Negative (Negative); Urine Clarity Sl. Cloudy (Clear); Urine Urobilinogen Normal (Normal)
[2022-06-11 14:23] LABS: Bacteria 1+ /hpf (None Seen); Red Blood Cells-Urine 10-25 SEEN /hpf (0-5); Squamous Epithelial Cells - UA 0-5 SEEN /hpf (5-10)
--- NOTE | 2022-06-11 15:49 | CHAPLAIN ---
Type of Pastoral Visit _x__ Initial Visit ___ Follow-up Visit ___ On-call Visit ___ General Patient Visit ___ Spiritual Assessment ___ Family Conference ___ Bereavement ___ Rapid Response ___ Code Blue ___ Other (describe below) Pastoral Care Referral From _x__ Patient ___ Family ___ Nurse ___ Physician ___ Operations Officer Afloat ___ Aluminum Hydroxide Process Operator ___ Other (describe below) Sacrament/Intervention _x__ Active listening ___ Anointing ___ Jew ___ Bereavement ___ Communion _x__ Beth exploration ___ ___ Life review _x__ Prayer ___ Reconciliation ___ Sacrament of Sick _x__ Supportive presence ___ Wedding ___ Other (describe below) Pastoral Comments met this patient while she was still in ICU earlier today; pt reviews reason for admission and disappointment at change of health after recent cancer treatments; pt states goal of wanting to live and get back to life; pt expresses frustrations at this interruption of plans for life; pt was previously active in a beth community but is not now; pt requests prayer and spiritual care support; presence, affirming listening, support, and prayer given
[2022-06-11] MEDS: Vancomycin 125 MG/5 ML Susp PO.SYRINGE PO ×2 (17:56→23:44)
[2022-06-11] MEDS: 0.9% Saline Lock 10 ML Syringe IV (23:44)
[2022-06-12 03:00] VITALS: BP 118/74; PULSE 106; RESP 16; TEMP 36.1; O2SAT 94
[2022-06-12] MEDS: Acetaminophen 325 MG Tablet 650 MG PO (03:56)
[2022-06-12] MEDS: Vancomycin 125 MG/5 ML Susp PO.SYRINGE PO ×2 (06:24→11:17)
[2022-06-12 08:51] VITALS: BP 122/65; PULSE 94; RESP 16; TEMP 36.4; O2SAT 96
--- NOTE | 2022-06-12 08:54 | PCM.PN.HOSP ---
Reason for Visit Reason for Visit: Diagnoses Malignant neoplasm of unspecified part of unspecified bronchus or lung (06/10/22) Acute kidney failure, unspecified (06/10/22) Diarrhea, unspecified (06/10/22) Other nonspecific abnormal finding of lung field (06/10/22) Objective Data Objective Data Vital Signs: Vital Signs Temp Pulse Resp BP Pulse Ox O2 Del Method 97.6 F L 94 16 122/65 H 96 Room Air 06/12/22 08:51 06/12/22 08:51 06/12/22 08:51 06/12/22 08:51 06/12/22 08:51 06/12/22 08:51 Oxygen Delivery Method Room Air Weight: 125 lb 3.561 oz Body Mass Index (BMI) 22.8 Intake & Output: Intake and Output for Last 24 Hours 06/10/22 06/11/22 06/12/22 23:59 23:59 23:59 Intake Total 1305 / 1305 4367.5 / 4367.5 405 / 405 Output Total 50 / 50 Balance 1305 / 1255 4317.5 / 4317.5 405 / 405 Medical Nutrition Assessment Dietitian: Malnutrition Criteria Met Start: 06/11/22 12:25 Freq: Status: Active Protocol: Document 06/11/22 12:25 AG (Rec: 06/11/22 12:25 AG [id number]) Nutrition Malnutrition Evidence of Malnutrition Exists Yes Malnutrition (moderate): Chronic Evidenced By Suboptimal Energy Intake ( Moderate),Weight Loss ( Moderate),Physical Changes ( Moderate) Clinical Problem Chronic Disease or Condition Related Malnutrition Etiology moderate, chronic malnutrition related to inadequate energy intake w/ increased energy needs d/t cancer Signs/Symptoms as evidenced by unintentional wt loss of ~10#/7% x 2-3 months; estimated PO intake meeting <75% of estimated energy needs > 3 months; moderate muscle wasting/fat loss evident per physical exam in orbital, clavicle, acromion, and temporal areas Status Active Problem Recommendation Dietitian Recommendations/Changes will liberalize diet to regular given evidence of malnutrition; 120mL ensure plus high protein 4x/day w/ medpass when PO diet is advanced Lab / Micro Data Result Diagrams: 06/11/22 04:40 06/11/22 04:40 Labs: Laboratory Results - last 24 hr 06/11/22 14:00: Urine Color Yellow, Urine Clarity Sl. Cloudy, Urine pH 6.0, Ur Specific [place] 1.020, Urine Protein 15 H, Urine Glucose (UA) Normal, Urine Ketones 5 H, Urine Occult Blood 150 H, Urine Nitrite Negative, Urine Bilirubin Negative, Urine Urobilinogen Normal, Ur Leukocyte Esterase Negative, Urine RBC 10-25 SEEN, Urine WBC 0 SEEN, Ur Squamous Epith Cells 0-5 SEEN, Urine Bacteria 1+, Urine Mucus 0 SEEN Micro: Microbiology 06/11/22 10:45 Stool C. difficile GDH Antigen & Toxins - Final Toxigenic C. difficile 06/11/22 10:45 Stool C. difficile DNA Amplification - Final 06/11/22 09:40 Mucosa - Nose Respiratory Panel (PCR) - Final 06/11/22 10:45 Stool Enteric Bacteriology - Final 06/10/22 22:25 Urine, Clean Catch Legionella Antigen - Final 06/10/22 22:25 Urine, Clean Catch Streptococcus pneumoniae Antigen (M - Final 06/10/22 19:50 Nasal Secretion SARS-CoV-2 & FLU Antigen (Rapid) - Final
[2022-06-12 09:06] LABS: Hematocrit 23.7 % (37-47); Hemoglobin 7.6 g/dL (12.0-15.0); Mean Corp Hgb Conc 32.1 g/dL (32-36); Mean Corpuscular Hgb 31.5 pg (27.0-32.0); Mean Corpuscular Volume 98.3 fL (81-99); Mean Platelet Vol. 10.3 fl (6.2-12.0); POSITIVE COUNT YES; POSITIVE DIFFERENTIAL YES; POSITIVE MORPHOLOGY YES; Platelet Count 84 K/mm3 (150-450); RBC Distribution Width CV 18.4 % (11.6-14.6); RBC Distribution Width SD 63.8 fl (35.1-43.9); Red Blood Count 2.41 M/mm3 (4.2-5.4); White Blood Count 10.6 K/mm3 (4.4-11.0)
[2022-06-12 09:08] VITALS: BMI 23.7
[2022-06-12 09:09] LABS: Differential Indicated MANUAL DIFF
[2022-06-12 09:31] LABS: Lymphocyte 2 % (19-41); Metamyelocyte 1 % (0-1); Monocyte 3 % (0-10); Neutrophil-Band 14 % (0-5); Neutrophil-Segmented 80 % (47-70); Total Cells Counted 100 (MANUAL DIFF)
[2022-06-12 09:32] LABS: Platelet Estimate MOD DEC (ADEQ); Red Cell Morphology NORM C+C NORMAL (NORM C&C)
[2022-06-12 09:35] LABS: ALB/GLOB Ratio 0.8 RATIO (0.9-2.4); AST(SGOT) 15 U/L (15-37); Alanine Aminotransfer ALT/SGPT 16 U/L (13-56); Albumin, Serum 2.6 g/dL (3.2-5.0); Alkaline Phosphatase 109 U/L (45-117); Anion Gap 4 (5-15); BUN 11 mg/dL (7-18); BUN/Creat Ratio 19.5 RATIO (10-20); Calcium,Total 9.7 mg/dL (8.5-10.1); Chloride 109 mmol/L (98-107); Creatinine, Serum 0.56 mg/dL (0.55-1.02); EST Glomerular Filtration Rate 112 mL/min (>60); Est Glom Filt Rate - Afr Amer 135 mL/min (>60); Estimated Creatinine Clearance 39.63 ml/min; Globulin 3.3 g/dL (2.2-4.2); Glucose 92 mg/dL (74-106); Magnesium 1.6 mg/dL (1.6-2.6); Potassium 4.5 mmol/L (3.5-5.1); Protein, Total 5.9 g/dL (6.4-8.2); Sodium Level 137 mmol/L (136-145)
--- NOTE | 2022-06-12 09:48 | DCINST_ITS ---
Discharge Instructions Diet Discharge Diet: No restrictions Activity Discharge Activity: Return to Normal Activity Weight Bearing Status: Weight bearing as tolerated Dressing / Incision Call your doctor if you observe: Fever of 101 or Higher, Coldness, Increased Pain, Numbness or Tingling, Change in Color, Inability to urinate, Inability to have a bowel movement, Using more than 1 pad per hour, Shortness of breath, Dizziness, Fainting spells, Swelling in the ankles, Chest pain, Prolonged hiccupping, Increased palpitations (irregular heartbeat) and Calf discomfort Follow Up Care When: IN 2 WEEKS Test Results: Test results from this visit will be discussed in further detail at your follow- up appointment, if applicable. Discharge Plan Admission Admit Date/Time: 06/10/22 21:03 Primary Reason for Your Visit: Right lower lobe pneumonia, C. difficile colitis, SCC Attending Provider: Rafael Jones Primary Care Provider: Arash Lisa Consulting Providers: Amauri Snyder ; Wade George Discharge Orders/Prescriptions Prescriptions: New acidophilus-pectin, citrus 25 million cell -100 mg Tablet 1 tab PO TID 14 Days Qty: 42 0RF Rx Instructions: OTC Mucus Relief ER 1,200 mg Tablet Extended Release 12hr 1,200 mg PO BID 7 Days Qty: 14 0RF vancomycin [Firvanq] 25 mg/mL Recon Soln 125 mg PO Q6 14 Days Qty: 280 0RF levofloxacin 500 mg tablet 500 mg PO DAILY Qty: 5 0RF ferrous sulfate [FeroSul] 325 mg (65 mg iron) tablet 325 mg PO DAILY Qty: 30 2RF ascorbic acid (vitamin C) 500 mg tablet 500 mg PO BID Qty: 60 2RF pantoprazole [Protonix] 40 mg tablet,delayed release (DR/EC) 40 mg PO DAILY Qty: 30 0RF Held clopidogrel [Plavix] 75 mg Tablet 75 mg PO DAILY Hold Instructions: Hold for 7 days Rx Instructions: PT UNSURE OF PLAVIX DOSE aspirin 81 mg Tablet,Delayed Release (Dr/Ec) 81 mg PO DAILY Hold Instructions: Hold for 3 days. Referrals / Follow Up: Arash Lisa MD [Primary Care Provider] - Arash Lisa MD [[facility]] - Disposition Disposition (needs filled in before D/C Order can be placed): Home, Self Care
[2022-06-12 09:49] VITALS: O2SAT 92
--- NOTE | 2022-06-12 10:01 | CASEMGMT ---
Addendum entered by Derrell Crews 06/12/22 13:13: Firvanq liquid has been e-scribed to [facility] in [place]. Per pharmacy, Firvanq is not covered and [id number] cost is $174. Good Rx card applied and cost is $163. Call placed to Med D @ [phone] who states PA is required. They did state Vanco capsules are in-formulary. PA request submitted for Firvanq via [id number] and it was approved. Call back to [facility] pharmacy and cost is now $145.58. Dr Jones made aware of above and states will e-scribe Vanco capsules for lowe check. Call to [facility] pharm and cost of capsules is $97.79. Dr Jones aware and states is okay for pt to d/c home on the capsules. Call to [facility] and notified to cancel the Firvanq liquid rx and to fill the Vanco capsule rx. Pt made aware of above. 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 She denies having other questions/concerns/needs. Addendum entered by Derrell Crews 06/12/22 11:20: Pt denies need for HHC and no needs identified. Addendum entered by Derrell Crews 06/12/22 11:20: Home O2 amb testing has been completed. Pt does not qualify for Home O2. Original Note: DOMENICA PORTER NOTE: Per Dr Jones, pt will be discharged home today. DOMENICA PORTER to room. Introduced self and role. Pt denies having any discharge planning needs or concerns. She states she has a pulse ox @ home. Pt to have home ambulatory oxygen testing completed. DOMENICA PORTER will monitor for any home oxygen needs. Shirley GUZMAN RN, CM
--- NOTE | 2022-06-12 10:01 | PCM.DC.SUM ---
Providers Date of Admission: 06/10/22 Date of Discharge: 06/12/22 Primary Care Physician: Dr. Arash Lisa MD Consultations 06/10/22 21:45 Consult: Loan Administrator / Pulmonary Medicine Routine Consulting Provider: Wade George Reason for Consult: Pneumonia EMERGENT Consult: No Notified: Yes Date Notified: 06/10/22 Time Notified: 21:13 Method of Notification: Text Reason For Visit: PNEUMONIA Diagnosis Discharge Diagnosis (1) Right lower lobe pulmonary infiltrate: Status: Acute Code(s): R91.8 - Other nonspecific abnormal finding of lung field (2) DORIAN (acute kidney injury): Status: Acute Code(s): N17.9 - Acute kidney failure, unspecified (3) Diarrhea: Status: Acute Code(s): R19.7 - Diarrhea, unspecified Plan This is 71-year-old female with 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 Patient also started on doxycycline for probable diverticulitis a day before admission 1. Hypovolemia due to acute gastroenteritis probably due to chemotherapeutic side effect: Patient BP was in the 90s in the ED. Patient had normal saline bolus in ED. 06/11: Patient on lactobacillus.Enteropathogenic panel and C. difficile ordered at the emergency department. Potassium level is normal. Severe hypomagnesemia, magnesium is getting replaced. Serum phosphorus ordered. Patient still very severely dehydrated therefore normal saline +40 mEq KCl at 150 mill per hour for 2 L. Monitor intake and output. 06/12: Acute enterocolitis due to C. difficile and chemotherapeutic side effect. Hypovolemia has resolved. Enteric bacteriology panel negative stool for C. difficile shows positive toxin and antigen A/B antigen. Patient was started on vancomycin yesterday. Discussed with ID Dr. Motta and agreed for 2 weeks of total vancomycin treatment along with probiotic. Hypomagnesemia corrected. Repeat magnesium 1.6. Serum phosphorus 2.7. Prescription for magnesium given 2. Right lower lobe pneumonia with history of small cell carcinoma: Neutropenic precaution with hand hygiene. Chest x-ray independently reviewed and shows focal right lower lobe infiltrate. Rapid SARS-CoV-2 and flu antigen are negative. Urinary antigens are negative. Lactic acid: Normal at 0.5. Blood culture ?2 is pending. Patient had leukocytosis 12,600 on admission repeat normal. Bands 8%. Neutrophils 74%, lymphocyte 5%, metamyelocytes 3%, myelocytes 6%. Overall it is suggestive of left shift Respiratory Gram stain and culture pending Antibiotics: Azithromycin and cefepime IV hydration as above. Albuterol as needed 06/11: WBC count is normal but patient has left shift with bands 14%, neutrophils 80% suggestive of left shift. Clinically patient is much improved. CT pending today but yesterday was 8.1 thousand. Pneumonia work-up negative blood culture negative for 48 hours. Respiratory panel negative. Discussed with ID and agreed for treatment with Levaquin for 5 days. Since patient has quick recovery in 2 days therefore agreed for total 7 days of antibiotic DORIAN Creatinine on presentation was 1.37. Baseline creatinine is about 0.62. BUN of 23. Likely secondary to dehydration from diarrhea. IV fluids as above. Avoid nephrotoxins. Monitor kidney function electrolytes 06/12: Creatinine 0.56 back on the baseline. Electrolytes in normal range. Chloride 192 IV fluid resuscitation. Thrombocytopenia Platelet on presentation was 62. Platelets on 04/23/2022 was 16. Trend CBC. Anemia Hemoglobin on presentation was 8.7. Hemoglobin on 05/21/22 was 6.4; and on 03/21/2022 was 12.3. Cytopenia. Patient given prescription for ferrous sulfate and vitamin C. Small cell lung cancer right lung. Follows Dr. Quezada. DVT prophylaxis SCD Total time of the visit including total time spent in counseling or coordination of care, (more than 50% of the total time, spent in obtaining medical information from nurses and other ancillary care providers,explaining to the patient about labs, imaging, diagnosis and management of active complex medical conditions), discussion with radiation protection technician, review of labs and imaging is 50 minutes. Microbiology Past 72 Hours 06/10/22 21:25 Urine, Clean Catch Urine Culture - Final Mixed Gram Pos & Gram Neg Org 06/11/22 10:45 Stool C. difficile GDH Antigen & Toxins - Final Toxigenic C. difficile 06/11/22 10:45 Stool C. difficile DNA Amplification - Final 06/11/22 09:40 Mucosa - Nose Respiratory Panel (PCR) - Final 06/11/22 10:45 Stool Enteric Bacteriology - Final 06/10/22 22:25 Urine, Clean Catch Legionella Antigen - Final 06/10/22 22:25 Urine, Clean Catch Streptococcus pneumoniae Antigen (M - Final 06/10/22 19:50 Nasal Secretion SARS-CoV-2 & FLU Antigen (Rapid) - Final Laboratory Results 06/11/22 14:00: Urine Color Yellow, Urine Clarity Sl. Cloudy, Urine pH 6.0, Ur Specific [place] 1.020, Urine Protein 15 H, Urine Glucose (UA) Normal, Urine Ketones 5 H, Urine Occult Blood 150 H, Urine Nitrite Negative, Urine Bilirubin Negative, Urine Urobilinogen Normal, Ur Leukocyte Esterase Negative, Urine RBC 10-25 SEEN, Urine WBC 0 SEEN, Ur Squamous Epith Cells 0-5 SEEN, Urine Bacteria 1+, Urine Mucus 0 SEEN 06/12/22 08:40: WBC 10.6, RBC 2.41 L, Hgb 7.6 L, Hct 23.7 L, MCV 98.3, MCH 31.5, MCHC 32.1, RDW Std Deviation 63.8 H, RDW Coeff of Chanda 18.4 H, Plt Count 84 L, MPV 10.3, Neut % (Auto) Not Reportable, Absolute Neuts (auto) Pending, Absolute Lymphs (auto) Pending, Total Counted 100, Neutrophils % (Manual) 80 H, Band Neutrophils % 14 H, Lymphocytes % (Manual) 2 L, Monocytes % (Manual) 3, Metamyelocytes % 1, Diff Path Review June, Platelet Estimate MOD DEC, RBC Morphology NORM C+C 06/12/22 08:40: Sodium 137, Potassium 4.5, Chloride 109 H, Carbon Dioxide 24.0, Anion Gap 4 L, BUN 11, Creatinine 0.56, Estim Creat Clear Calc 39.63, Est GFR (MDRD) Af Amer 135, Est GFR (MDRD) Non-Af 112, BUN/Creatinine Ratio 19.5, Glucose 92, Calcium 9.7, Magnesium 1.6, Total Bilirubin 0.20, AST 15, ALT 16, Alkaline Phosphatase 109, Total Protein 5.9 L, Albumin 2.6 L, Globulin 3.3, Albumin/Globulin Ratio 0.8 L Clinical Impression(s) from Imaging Studies Chest X-Ray 06/10/22 19:48 IMPRESSION: Focal right basilar infiltrate. Medications at Discharge Home Medications aspirin 81 mg tablet,delayed release 81 mg PO DAILY 04/14/22 clopidogrel 75 mg tablet (Plavix) 75 mg PO DAILY 04/14/22 acidophilus 25 million cell-pectin, citrus 100 mg tablet 1 tab PO TID 14 days #42 tabs 06/12/22 ascorbic acid (vitamin C) 500 mg tablet 500 mg PO BID #60 tabs 06/12/22 ferrous sulfate 325 mg (65 mg iron) tablet (FeroSul) 325 mg PO DAILY #30 tabs 06/12/22 guaifenesin 1,200 mg tablet, extended release 12 hr (Mucus Relief ER) 1,200 mg PO BID 7 days #14 tabs 06/12/22 levofloxacin 500 mg tablet 500 mg PO DAILY #5 tabs 06/12/22 magnesium oxide 400 mg (241.3 mg magnesium) tablet 400 mg PO BID 3 days #6 tabs 06/12/22 pantoprazole 40 mg tablet,delayed release (Protonix) 40 mg PO DAILY #30 tabs 06/12/22 vancomycin 25 mg/mL oral solution (Firvanq) 125 mg (5 mL) PO Q6 14 days #280 mL 06/12/22 Physical Exam Narrative Seen and examined. Patient is able to bring up phlegm. C. difficile came positive patient on p.o. vancomycin. Her loose bowel movement is stopped. Currently she is on room air with no tachypnea or labored breathing. Patient is well hydrated. Urine is clear. On nurse monitoring sinus tachycardia. No chest pain or shortness of breath at rest. Physical exam General: Alert, Oriented x3, Cooperative HEENT: Atraumatic, PERRLA, EOMI, Normocephalic Oral: Oral mucosa No Gingival or Mucosal Lesions/ Ulcerations Neck: Supple, No JVD, Negative Carotid Bruits Lungs: Air entry diminished in bilateral lung bases. Lungs clear. Cardiovascular: Sinus tachycardia, Normal S1, Normal S2, No murmurs Abdomen: Bowel Sounds Present, Soft, Non Tender, Non-Distended : No dysuria. No renal angle tenderness. No suprapubic tenderness. Extremities: No edema, Capillary Refill Less than 3 Seconds Skin: No rashes, No breakdown Musculoskeletal: No Tenderness to Palpation of Joints or Extremities. ROM intact and full. Neurological: Cranial nerves II-XII grossly intact, DTR 2+/4 and Symmetrical, Neuro grossly intact Psych/Mental Status: Flat affect Medical Records Data Medical Nutrition Assessment Dietitian: Malnutrition Criteria Met Start: 06/11/22 12:25 Freq: Status: Active Protocol: Document 06/11/22 12:25 (Rec: 06/11/22 12:25 AG [id number]) Nutrition Malnutrition Evidence of Malnutrition Exists Yes Malnutrition (moderate): Chronic Evidenced By Suboptimal Energy Intake ( Moderate),Weight Loss ( Moderate),Physical Changes ( Moderate) Clinical Problem Chronic Disease or Condition Related Malnutrition Etiology moderate, chronic malnutrition related to inadequate energy intake w/ increased energy needs d/t cancer Signs/Symptoms as evidenced by unintentional wt loss of ~10#/7% x 2-3 months; estimated PO intake meeting <75% of estimated energy needs > 3 months; moderate muscle wasting/fat loss evident per physical exam in orbital, clavicle, acromion, and temporal areas Status Active Problem Recommendation Dietitian Recommendations/Changes will liberalize diet to regular given evidence of malnutrition; 120mL ensure plus high protein 4x/day w/ medpass when PO diet is advanced Weight / BMI Weight Weight: 129 lb 13.636 oz Body Mass Index (BMI) 23.7 ABG / Lab / Microbiology Data Result Diagrams: 06/12/22 08:40 06/12/22 08:40 Laboratory: Laboratory Results - last 24 hr 06/11/22 14:00: Urine Color Yellow, Urine Clarity Sl. Cloudy, Urine pH 6.0, Ur Specific [place] 1.020, Urine Protein 15 H, Urine Glucose (UA) Normal, Urine Ketones 5 H, Urine Occult Blood 150 H, Urine Nitrite Negative, Urine Bilirubin Negative, Urine Urobilinogen Normal, Ur Leukocyte Esterase Negative, Urine RBC 10-25 SEEN, Urine WBC 0 SEEN, Ur Squamous Epith Cells 0-5 SEEN, Urine Bacteria 1+, Urine Mucus 0 SEEN 06/12/22 08:40: WBC 10.6, RBC 2.41 L, Hgb 7.6 L, Hct 23.7 L, MCV 98.3, MCH 31.5, MCHC 32.1, RDW Std Deviation 63.8 H, RDW Coeff of Chanda 18.4 H, Plt Count 84 L, MPV 10.3, Neut % (Auto) Not Reportable, Total Counted 100, Neutrophils % (Manual) 80 H, Band Neutrophils % 14 H, Lymphocytes % (Manual) 2 L, Monocytes % (Manual) 3, Metamyelocytes % 1, Diff Path Review May foll, Platelet Estimate MOD DEC, RBC Morphology NORM C+C 06/12/22 08:40: Sodium 137, Potassium 4.5, Chloride 109 H, Carbon Dioxide 24.0, Anion Gap 4 L, BUN 11, Creatinine 0.56, Estim Creat Clear Calc 39.63, Est GFR (MDRD) Af Amer 135, Est GFR (MDRD) Non-Af 112, BUN/Creatinine Ratio 19.5, Glucose 92, Calcium 9.7, Magnesium 1.6, Total Bilirubin 0.20, AST 15, ALT 16, Alkaline Phosphatase 109, Total Protein 5.9 L, Albumin 2.6 L, Globulin 3.3, Albumin/Globulin Ratio 0.8 L Microbiology: Microbiology 06/10/22 21:25 Urine, Clean Catch Urine Culture - Final Mixed Gram Pos & Gram Neg Org 06/11/22 10:45 Stool C. difficile GDH Antigen & Toxins - Final Toxigenic C. difficile 06/11/22 10:45 Stool C. difficile DNA Amplification - Final 06/11/22 09:40 Mucosa - Nose Respiratory Panel (PCR) - Final 06/11/22 10:45 Stool Enteric Bacteriology - Final 06/10/22 22:25 Urine, Clean Catch Legionella Antigen - Final 06/10/22 22:25 Urine, Clean Catch Streptococcus pneumoniae Antigen (M - Final 06/10/22 19:50 Nasal Secretion SARS-CoV-2 & FLU Antigen (Rapid) - Final D/C Instructions Discharge Diet: No restrictions Weight Bearing Status: Weight bearing as tolerated Call your doctor if you observe: Fever of 101 or Higher, Coldness, Increased Pain, Numbness or Tingling, Change in Color, Inability to urinate, Inability to have a bowel movement, Using more than 1 pad per hour, Shortness of breath, Dizziness, Fainting spells, Swelling in the ankles, Chest pain, Prolonged hiccupping, Increased palpitations (irregular heartbeat) and Calf discomfort When: IN 2 WEEKS Meaningful Use Info Meaningful Use Diagnoses (Choose all that apply): None applicable Discharge Plan Admission Admit Date/Time: 06/10/22 21:03 Primary Reason for Your Visit: Right lower lobe pneumonia, C. difficile colitis, SCC Attending Provider: Rafael Jones Primary Care Provider: Arash Lisa Consulting Providers: Amauri Snyder ; Wade George Discharge Orders/Prescriptions Prescriptions: New acidophilus-pectin, citrus 25 million cell -100 mg Tablet 1 tab PO TID 14 Days Qty: 42 0RF Rx Instructions: OTC Mucus Relief ER 1,200 mg Tablet Extended Release 12hr 1,200 mg PO BID 7 Days Qty: 14 0RF vancomycin [Firvanq] 25 mg/mL Recon Soln 125 mg PO Q6 14 Days Qty: 280 0RF levofloxacin 500 mg tablet 500 mg PO DAILY Qty: 5 0RF ferrous sulfate [FeroSul] 325 mg (65 mg iron) tablet 325 mg PO DAILY Qty: 30 2RF ascorbic acid (vitamin C) 500 mg tablet 500 mg PO BID Qty: 60 2RF pantoprazole [Protonix] 40 mg tablet,delayed release (DR/EC) 40 mg PO DAILY Qty: 30 0RF magnesium oxide 400 mg (241.3 mg magnesium) tablet 400 mg PO BID 3 Days Qty: 6 0RF Held clopidogrel [Plavix] 75 mg Tablet 75 mg PO DAILY Hold Instructions: Hold for 7 days Rx Instructions: PT UNSURE OF PLAVIX DOSE aspirin 81 mg Tablet,Delayed Release (Dr/Ec) 81 mg PO DAILY Hold Instructions: Hold for 3 days. Referrals / Follow Up: Arash Lisa MD [Primary Care Provider] - Arash Lisa MD [[facility]] - Disposition Disposition (needs filled in before D/C Order can be placed): Home, Self Care Charges/Coding Visit Charges Inpatient E&M: 44895 Disch Hosp >30min
--- NOTE | 2022-06-12 10:45 | PHA.DC.MC ---
Pharmacy Service has performed discharge medication reconciliation and counseling for this patient. The patient was counseled on the following discharge medications and changes in medications for homegoing were reviewed. 1. LEVAQUIN 2. PROBIOTIC 3. ORAL VANCOMYCIN The Reason for Use, instructions for use, and potential side effects were reviewed for all new medications. The patient's questions regarding all of their medications were answered. The patient was able to verbally demonstrate an understanding of their discharge medications. NOTE: Also discussed with the patient to maintain good hand hygeine to help prevent spread of c.diff infection to others in the household, informed to not take Imodium to prevent diarrhea while being treated for C. diff infection. Home Medications aspirin 81 mg tablet,delayed release 81 mg PO DAILY 04/14/22 clopidogrel 75 mg tablet (Plavix) 75 mg PO DAILY 04/14/22 acidophilus 25 million cell-pectin, citrus 100 mg tablet 1 tab PO TID 14 days #42 tabs 06/12/22 ascorbic acid (vitamin C) 500 mg tablet 500 mg PO BID #60 tabs 06/12/22 ferrous sulfate 325 mg (65 mg iron) tablet (FeroSul) 325 mg PO DAILY #30 tabs 06/12/22 guaifenesin 1,200 mg tablet, extended release 12 hr (Mucus Relief ER) 1,200 mg PO BID 7 days #14 tabs 06/12/22 levofloxacin 500 mg tablet 500 mg PO DAILY #5 tabs 06/12/22 magnesium oxide 400 mg (241.3 mg magnesium) tablet 400 mg PO BID 3 days #6 tabs 06/12/22 pantoprazole 40 mg tablet,delayed release (Protonix) 40 mg PO DAILY #30 tabs 06/12/22 vancomycin 25 mg/mL oral solution (Firvanq) 125 mg (5 mL) PO Q6 14 days #280 mL 06/12/22 The patient's discharge medication list was reviewed for discrepancies and discrepancies were resolved.
[2022-06-12 11:15] VITALS: O2SAT 94; O2SAT 96
[2022-06-12] MEDS: guaiFENesin 1,200 MG Tablet 1200 MG PO (11:17)
[2022-06-12 13:21] LABS: Pathologist Review Reviewed
[2022-06-12 13:24] LABS: Pathologist Review Reviewed
[2022-06-12 14:34] LABS: Myelocyte 1 % (0-0)
[2022-06-12 14:35] LABS: Absolute Lymphocyte Count 0.21 X10^3/uL (0.83-4.51)
[2022-06-13 12:52] LABS: Pathologist Review Reviewed
== END 2022-06-12 14:40 | disposition home or self-care (01) | DRG 371 ==
LOC: ED 20:51 → ICU 21:23 → PCU 06-11 14:58
PROVIDERS: Nurse Practitioner; Admitting Provider Hospitalist; Emergency Provider Emergency Medicine; PCP Family Medicine; Visit Provider Internal Medicine
DX: A04.72 Enterocolitis due to Clostridium difficile, not specified as recurrent (principal); J18.9 Pneumonia, unspecified organism; E44.0 Moderate protein-calorie malnutrition; N17.9 Acute kidney failure, unspecified; C34.31 Malignant neoplasm of lower lobe, right bronchus or lung; K57.92 Diverticulitis of intestine, part unspecified, without perforation or abscess without bleeding; D69.6 Thrombocytopenia, unspecified; D63.1 Anemia in chronic kidney disease; I95.9 Hypotension, unspecified; E86.1 Hypovolemia; Z92.21 Personal history of antineoplastic chemotherapy; Z79.82 Long term (current) use of aspirin; T45.1X5A Adverse effect of antineoplastic and immunosuppressive drugs, initial encounter; Z87.891 Personal history of nicotine dependence; Z79.02 Long term (current) use of antithrombotics/antiplatelets; R91.8 Other nonspecific abnormal finding of lung field; Z68.22 Body mass index [BMI] 22.0-22.9, adult
CPT/HCPCS: 71045; 80048; 80053; 81001; 83605; 83735; 84100; 85025; 85610; 85730; 87040; 87086; 87088; 87428; 87449; 87493; 87506; 87633; 93005; 94668; 97802; 99252; 99282; J7030; A4216; G0463